=== PATIENT | female | born 1955 | race Caucasian/White ===

== ENCOUNTER 2024-10-16 13:12 | Outpatient (CLI) | payer MEDICARE, SELFPAY | END 2024-10-16 13:13 | disposition home or self-care (01) | PROVIDERS: Visit Provider Emergency Medicine Emergency Medical Services | DX: R53.1 Weakness (principal); R41.82 Altered mental status, unspecified | CPT/HCPCS: A0425; A0427 ==

== ENCOUNTER 2024-10-16 13:37 | Emergency (ER) | payer MEDICARE, SELFPAY ==
[2024-10-16] VITALS (65 sets, daily range): BP systolic 81–144; BP diastolic 45–120; PULSE 85–122; RESP 22–28; TEMP 37.6–39.3; O2SAT 91–96; BMI 24.1
--- NOTE | 2024-10-16 14:02 | ED_ITS ---
HPI - Fever General Time Seen by Provider: 14:02 Date Seen: 10/16/24 Chief Complaint: Fever Stated Complaint: Ill Time Seen by Provider: 10/16/24 13:55 Source: patient, EMS and RN notes reviewed Mode of arrival: EMS History of Present Illness HPI Narrative: Up 69-year-old female is brought in by EMS from home due to fever and illness. EMS reported that patient had 2 days of weakness and not acting right, difficulty speaking. She was noted to be a poor historian, EMS could not get an IV EN route. She has been known to have fever, recent chemotherapy. Was reporting left lower quadrant abdominal pain and had noted to have foul urine odor smell to her. Patient is minimally talking but is alert. When asked what type of cancer she has she tells me cancer. I start reviewing some of the cancers in she does endorse breast cancer after I went over that is 1 of the possibilities. She could not tell me what type of cancer without any prompting. She really cannot corroborate symptoms or give much of a history due to her illness right now. Her significant other is reportedly on the way but is not here. She has medications from [facility], did go into [facility] and there are no records on this patient. There are no current prior records in the new EMR or any in our past EMR on her. I do ask if she has had surgery for her breast cancer, she looks like she is trying to answer but never does answer the question. MD elicited complaint: fever and weakness Related Data Home Medications ?Medication ?Instructions ?Recorded ?Confirmed apixaban .ROUTE 10/16/24 dexamethasone .ROUTE 10/16/24 Allergies Allergy/AdvReac Type Severity Reaction Status Date / Time No Known Drug Allergies Allergy Verified 10/16/24 18:25 Review of Systems Status of ROS Reports: unobtainable due to medical condition Exam Const Vital Signs, click to edit/add: Vital Signs - 24 hr 10/16/24 13:42 10/16/24 14:09 10/16/24 14:15 Temperature 101.8 F H Pulse Rate 119 H 116 H Pulse Rate [Pulse Oximeter] 122 H Respiratory Rate 24 28 H 28 H Blood Pressure 94/60 81/56 L Blood Pressure [Right Upper Arm] 95/66 Pulse Oximetry 91 94 92 Oxygen Delivery Method Room Air Room Air Room Air 10/16/24 14:16 10/16/24 14:32 10/16/24 14:39 Temperature Pulse Rate 115 H 113 H Pulse Rate [Pulse Oximeter] Respiratory Rate 26 H 28 H Blood Pressure 87/54 L 87/57 L Blood Pressure [Right Upper Arm] Pulse Oximetry 94 96 Oxygen Delivery Method Room Air Room Air 10/16/24 14:42 10/16/24 14:51 10/16/24 15:02 Temperature Pulse Rate 109 H 108 H Pulse Rate [Pulse Oximeter] Respiratory Rate 28 H 26 H 24 Blood Pressure 98/59 L 97/68 Blood Pressure [Right Upper Arm] Pulse Oximetry 96 96 96 Oxygen Delivery Method Room Air Room Air Room Air 10/16/24 15:11 10/16/24 15:11 10/16/24 15:22 Temperature 99.6 F 99.6 F Pulse Rate 106 H 103 H Pulse Rate [Pulse Oximeter] Respiratory Rate 24 24 Blood Pressure 86/56 L 89/53 L Blood Pressure [Right Upper Arm] Pulse Oximetry 95 95 Oxygen Delivery Method Room Air Room Air 10/16/24 15:31 10/16/24 15:41 10/16/24 15:51 Temperature Pulse Rate 103 H 103 H Pulse Rate [Pulse Oximeter] Respiratory Rate 26 H 22 24 Blood Pressure 90/54 L 90/53 L 88/54 L Blood Pressure [Right Upper Arm] Pulse Oximetry 94 95 95 Oxygen Delivery Method Room Air Room Air Room Air 10/16/24 16:02 10/16/24 16:22 10/16/24 16:26 Temperature Pulse Rate 102 H 98 94 Pulse Rate [Pulse Oximeter] Respiratory Rate 22 22 24 Blood Pressure 87/53 L 86/53 L 97/58 L Blood Pressure [Right Upper Arm] Pulse Oximetry 96 95 96 Oxygen Delivery Method Room Air Room Air Room Air 10/16/24 16:31 10/16/24 16:36 10/16/24 16:41 Temperature Pulse Rate 93 92 93 Pulse Rate [Pulse Oximeter] Respiratory Rate 22 22 22 Blood Pressure 106/59 L 106/56 L 106/62 Blood Pressure [Right Upper Arm] Pulse Oximetry 94 95 96 Oxygen Delivery Method Room Air Room Air Room Air 10/16/24 16:46 10/16/24 16:51 10/16/24 16:56 Temperature 100.2 F H Pulse Rate 95 92 92 Pulse Rate [Pulse Oximeter] Respiratory Rate 24 22 Blood Pressure 104/63 110/64 110/64 Blood Pressure [Right Upper Arm] Pulse Oximetry 96 94 93 Oxygen Delivery Method Room Air Room Air 10/16/24 17:02 10/16/24 17:06 10/16/24 17:12 Temperature Pulse Rate 101 H 104 H 105 H Pulse Rate [Pulse Oximeter] Respiratory Rate Blood Pressure 116/73 112/74 126/70 Blood Pressure [Right Upper Arm] Pulse Oximetry 95 95 95 Oxygen Delivery Method 10/16/24 17:17 10/16/24 17:20 10/16/24 17:22 Temperature Pulse Rate 107 H 108 H 108 H Pulse Rate [Pulse Oximeter] Respiratory Rate Blood Pressure 120/66 144/120 H Blood Pressure [Right Upper Arm] Pulse Oximetry 95 95 95 Oxygen Delivery Method 10/16/24 17:27 10/16/24 17:35 10/16/24 17:37 Temperature 102.8 F H Pulse Rate 110 H 119 H 114 H Pulse Rate [Pulse Oximeter] Respiratory Rate 28 H 28 H 26 H Blood Pressure 123/82 116/72 104/62 Blood Pressure [Right Upper Arm] Pulse Oximetry 95 93 94 Oxygen Delivery Method Room Air Room Air Room Air 10/16/24 17:42 10/16/24 17:48 10/16/24 17:52 Temperature Pulse Rate 118 H 117 H 112 H Pulse Rate [Pulse Oximeter] Respiratory Rate 26 H 26 H Blood Pressure 116/71 112/62 111/66 Blood Pressure [Right Upper Arm] Pulse Oximetry 94 94 95 Oxygen Delivery Method Room Air Room Air Room Air 10/16/24 17:57 10/16/24 18:06 10/16/24 18:22 Temperature Pulse Rate 117 H 106 H 104 H Pulse Rate [Pulse Oximeter] Respiratory Rate 24 24 Blood Pressure 107/58 L 112/99 H 96/55 L Blood Pressure [Right Upper Arm] Pulse Oximetry 95 Oxygen Delivery Method Room Air Room Air Room Air 10/16/24 18:27 10/16/24 18:29 10/16/24 18:32 Temperature Pulse Rate 108 H 106 H 107 H Pulse Rate [Pulse Oximeter] Respiratory Rate Blood Pressure 89/47 L 86/50 L 87/45 L Blood Pressure [Right Upper Arm] Pulse Oximetry 92 91 93 Oxygen Delivery Method Room Air Room Air Room Air 10/16/24 18:36 10/16/24 18:37 10/16/24 18:41 Temperature 99.6 F 99.6 F Pulse Rate 101 H 98 Pulse Rate [Pulse Oximeter] Respiratory Rate 24 Blood Pressure 101/58 L 103/58 L Blood Pressure [Right Upper Arm] Pulse Oximetry 93 93 Oxygen Delivery Method Room Air 10/16/24 18:46 10/16/24 18:51 10/16/24 18:56 Temperature Pulse Rate 100 98 97 Pulse Rate [Pulse Oximeter] Respiratory Rate 24 Blood Pressure 98/57 L 100/56 L 102/57 L Blood Pressure [Right Upper Arm] Pulse Oximetry 93 92 92 Oxygen Delivery Method 10/16/24 19:02 10/16/24 19:06 10/16/24 19:11 Temperature Pulse Rate 97 100 101 H Pulse Rate [Pulse Oximeter] Respiratory Rate 24 Blood Pressure 104/56 L 101/58 L 105/56 L Blood Pressure [Right Upper Arm] Pulse Oximetry 94 92 93 Oxygen Delivery Method Room Air Room Air Room Air 10/16/24 19:16 10/16/24 19:22 10/16/24 19:27 Temperature Pulse Rate 100 93 93 Pulse Rate [Pulse Oximeter] Respiratory Rate Blood Pressure 100/56 L 96/55 L 95/54 L Blood Pressure [Right Upper Arm] Pulse Oximetry 92 93 93 Oxygen Delivery Method Room Air 10/16/24 19:32 10/16/24 19:37 10/16/24 19:42 Temperature Pulse Rate 92 92 91 Pulse Rate [Pulse Oximeter] Respiratory Rate Blood Pressure 96/52 L 97/58 L 97/55 L Blood Pressure [Right Upper Arm] Pulse Oximetry 94 95 94 Oxygen Delivery Method Room Air Room Air Room Air 10/16/24 19:46 10/16/24 19:51 10/16/24 19:56 Temperature Pulse Rate 93 92 92 Pulse Rate [Pulse Oximeter] Respiratory Rate Blood Pressure 98/54 L 97/55 L 101/56 L Blood Pressure [Right Upper Arm] Pulse Oximetry 93 93 94 Oxygen Delivery Method Room Air Room Air Room Air 10/16/24 20:01 10/16/24 20:06 10/16/24 20:12 Temperature Pulse Rate 91 89 Pulse Rate [Pulse Oximeter] Respiratory Rate 24 24 24 Blood Pressure 105/55 L 108/61 117/52 L Blood Pressure [Right Upper Arm] Pulse Oximetry 93 93 Oxygen Delivery Method 10/16/24 20:16 10/16/24 20:22 10/16/24 20:27 Temperature Pulse Rate 90 85 Pulse Rate [Pulse Oximeter] Respiratory Rate 24 24 Blood Pressure 115/66 118/67 110/67 Blood Pressure [Right Upper Arm] Pulse Oximetry 95 96 Oxygen Delivery Method Febrile 69-year-old female lying there, alert, does attempt to talk but can maybe get 1 word out at a time. Eyes are widely open, maybe a little scleral icterus, difficult to say. Conjugate gaze. Symmetrical facial function. Lips are dry, cracked, or pharynx dry. Neck is supple, no masses. Breathing easy on room air, too weak to sit up, lung sounds at axilla and anteriorly are clear. CV regular but fast, no murmur noted, normal S1-S2. Abdomen is soft, nontender, nondistended, no organomegaly noted at this time. Of note, patient was c omplaining of left lower quadrant abdominal pain, nursing staff did place a Nino and she had about 700 mL of urine out, she is nontender at this time and I am examining after the Nino is placed. She will wiggle her arms, legs, follows commands. Overall diminished global strength. Note no rash at this time. Documenting provider has reviewed patient's vital signs: yes Course Course ED Course: This patient is presumably septic with fever and tachycardia, lower blood pre ssure. I have nothing to compare to for prior vitals as far as blood pressure. Have initiated initial L of IV fluids with normal saline, will place a 2 L to follow. Blood cultures in blood, urinalysis has been obtained. Will get a portable chest x-ray. Have ordered vancomycin and Zosyn for sepsis. Will see if we can get any further records on her, talk to her significant other when he arrives. Reevaluation(s) Time of Reevaluation #1: 16:25 Reevaluation #1: Patient is alert, conversive. No concern for any encephalopathic changes at this time. Have reviewed with her that I have talked to [facility], they are on bed divert but will be considering her. Will be starting pressure support as her maps have been consistently under 65, latest was 61. She clinically is looking better, pulse is improving. Have ordered a follow-up lactate. She has completed 2 L of IV fluid, about a another 500 mL between the antibiotics. Time of Reevaluation #2: 18:28 Reevaluation #2: Patient blood pressures have lowered again, map is below 65. Will re-initiate norepinephrine. Nursing staff will update [facility]. Consultations Consultation #1: Spoke with Nanci ROBERT at [facility]. She did give me some history on the patient. They are currently on diversion. If patient does need to go on pressor support, needs unit bed support, we are to call back as they may consider her. She received carboplatin and gemcitabine on the . She has a history of right breast cancer with bone and liver metastases, had a right lumpectomy. She has had a history of PE, history of pneumonitis and interstitial lung disease. History tricuspid regurgitation, history of hypercalcemia. Confirmed no known drug allergies. 4:07 p.m. spoke with Kev ROBERT. Patient has been started on norepinephrine for pressure support. She clinically looks better, is mentating normally now. She is going to take the information and talk to the biomedical engineering technologist of the day, they will contact us back. 5:34 p.m.: Spoke with the insurance and benefits clerk Dr. Burnett, she is aware that patient is currently going off norepinephrine as blood pressure was 144/120. Most recent temperature was 102.8?, obtaining another blood culture, will give oral dose of Tylenol. Patient will proceed with chest abdomen pelvis to see if we can find a source prior to transfer. Will make sure her films are pushed to [facility]. She will be going to [facility] in [place]. 7:11 p.m.: Did update new staff in the unit that will be caring for patient. They had requested new sign-out which was called to [facility], spoke with nurse practitioner Kiley. Time: 14:51 Consultation #2: Did speak with [facility] hospitalist Dr. Cuevas and insurance and benefits clerk Dr. Richards. They are accepting this patient, maybe up to an 8 hour wait. We did discuss hydrocortisone, as there will be a weight, will order the chest abdomen pelvis CT as patient seems to have stabilized. Did not feel earlier that we had the capacity to do this. Their where that I am still working with [facility] to see if I can get her down to [place]. We will cancel the [facility] bed if we hear from her [facility] that we have acceptance. Time: 17:10 Vital Signs Vital signs: Initial Vital Signs Temperature 101.8 F H 10/16/24 13:42 Temperature Source Temporal Artery Scan 10/16/24 13:42 Pulse Rate 122 H 10/16/24 13:42 Respiratory Rate 24 10/16/24 13:42 Blood Pressure 95/66 10/16/24 13:42 Blood Pressure Mean 75 10/16/24 13:42 Blood Pressure Position Sitting 10/16/24 13:42 Pulse Oximetry 91 10/16/24 13:42 Oxygen Delivery Method Room Air 10/16/24 13:42 Vital Signs Temperature 101.8 F H 10/16/24 13:42 Pulse Rate 122 H 10/16/24 13:42 Respiratory Rate 24 10/16/24 13:42 Blood Pressure 95/66 10/16/24 13:42 Pulse Oximetry 91 10/16/24 13:42 Oxygen Delivery Method Room Air 10/16/24 13:42 Temperature 99.6 F 10/16/24 18:37 Pulse Rate 85 10/16/24 20:22 Respiratory Rate 24 10/16/24 20:22 Blood Pressure 110/67 10/16/24 20:27 Pulse Oximetry 96 10/16/24 20:22 Oxygen Delivery Method Room Air 10/16/24 19:56 Medications Administered Medications: Discontinued Medications Generic Name Dose Route Start Last Admin Trade Name Freq PRN Reason Stop Dose Admin Acetaminophen 650 mg 10/16/24 14:10 10/16/24 14:34 Acetaminophen 650 Mg Supp CO 10/16/24 14:11 650 mg ONCE ONE Administration Acetaminophen 1,000 mg 10/16/24 17:19 10/16/24 17:31 Acetaminophen 500 Mg Tablet PO 10/16/24 17:20 1,000 mg ONCE ONE Administration Hydrocortisone Sodium Succinate 100 mg 10/16/24 17:30 10/16/24 17:46 Hydrocortisone Sod Succinate 50 Mg/Ml Inj IVP 100 mg Q8H KAREN Administration Sodium Chloride 1,000 mls @ 1,000 mls/hr 10/16/24 14:04 10/16/24 15:11 0.9 % Sodium Chloride 1000 Ml IV 10/16/24 15:03 Infused .Q1H KAREN Infusion Vancomycin/PEG/NADA/Lysine/Water 1.25 gm in 250 mls @ 200 mls/hr 10/16/24 14:30 10/16/24 16:43 Vancomycin 1.25 Gm/250 Ml IVPB 10/16/24 15:44 Infused ONCE ONE Infusion Protocol Piperacillin Sod/Tazobactam 100 mls @ 200 mls/hr 10/16/24 14:09 10/16/24 15:11 Sod 3.375 gm/ Sodium Chloride IVPB 10/16/24 14:10 Infused ONCE ONE Infusion Sodium Chloride 1,000 mls @ 1,000 mls/hr 10/16/24 14:44 10/16/24 16:43 0.9 % Sodium Chloride 1000 Ml IV 10/16/24 15:43 Infused .Q1H KAREN Infusion Norepinephrine/Dextrose 4,000 mcg in 250 mls @ 24.664 mls/hr 10/16/24 16:15 10/16/24 18:32 Norepinephrine Infusion IV 0.1 mcg/kg/min CONT KAREN 24.66 mls/hr Titration Protocol 0.1 MCG/KG/MIN Potassium Chloride/Sodium Chloride 1,000 mls @ 125 mls/hr 10/16/24 16:35 10/16/24 16:45 0.9 % Sodium Ch + Kcl 20 Meq/L IV 125 mls/hr .Q8H KAREN Administration MDM - Fever Lab Data Attestation: I reviewed the patient's lab results. Labs: Lab Results 10/16/24 10/16/24 10/16/24 Range/Units 13:40 14:03 14:05 WBC 2.25 L (4.50-11.00) K/uL RBC 3.19 L (4.00-5.20) m/uL Hgb 10.3 L (12.0-16.0) gm/dL Hct 31.8 L (33.0-51.0) % MCV 100 (80-100) fL MCH 32 (26-34) pg MCHC 32 (32-36) gm/dL RDW Coeff of Christopher 16.2 H (11.5-15.5) % Plt Count 25 L* (140-440) K/uL Neut % (Auto) 86.2 H (42.0-72.0) % Lymph % (Auto) 10.2 L (20-44) % Redwood % (Auto) 2.7 (0.0-11.0) % Eos % (Auto) 0.0 (0.0-7.0) % Baso % (Auto) 0.0 (0.0-3.0) % Neut # (Auto) 1.90 (1.7-7.0) K/uL Lymph # (Auto) 0.20 L (0.90-2.90) K/uL Redwood # (Auto) 0.10 (0.00-0.90) K/UL Eos # (Auto) 0.00 (0.00-0.50) K/uL Baso # (Auto) 0.00 (0.00-0.30) K/uL Abs Immat Gran (auto) 0.00 (0.00-0.30) K/uL Imm/Tot Granulo (auto) 0.9 % Diff Slide Review Acceptable Review (Acceptable) VBG pH 7.471 H (7.32-7.43) VBG pCO2 29 L (40-50) mmHG VBG pO2 < 30.1 (25-47) mmHG VBG HCO3 21 (21-28) mmol/L Sodium 132 L (135-149) mmol/L Potassium 3.8 (3.6-5.1) mmol/L Chloride 100 (96-114) mmol/L Carbon Dioxide 22 (20-32) mmol/L Anion Gap 10 (7-15) mEq/L BUN 21 (7-30) mg/dL Creatinine 0.8 (0.5-1.5) mg/dL Estimated Creat Clear 47.78 Estimated GFR 80 ml/min Glucose 92 (60-115) mg/dL Lactate 3.2 H (0.5-1.9) mmol/L Calcium 8.3 L (8.4-10.6) mg/dL Total Bilirubin 0.9 (0.1-1.5) mg/dL AST 239 H (12-35) U/L ALT 45 H (4-35) U/L Alkaline Phosphatase 225 H (40-150) U/L Troponin I 0.02 (0.01-0.04) ng/mL C-Reactive Protein 17.0 H (0.5-1.0) mg/dL NT-Pro-B Natriuret Pep 261 pg/mL Total Protein 6.5 (6.0-8.3) g/dL Albumin 3.7 (3.3-5.0) g/dL Procalcitonin 18.60 H (<0.50) ng/mL Urine Color Yellow (Yellow) Urine Appearance Clear (Clear) Urine pH 7.0 (5.0-8.5) Ur Specific [place] Gap 1.020 (1.000-1.030) Urine Protein 1+ A (Negative) Urine Glucose (UA) Negative (Negative) Urine Ketones Negative (Negative) Urine Blood Negative (Negative) Urine Nitrite Negative (Negative) Urine Bilirubin Negative (Negative) Urine Urobilinogen 0.2 (0.2-1.0) Ur Leukocyte Esterase Negative (Negative) Urine RBC 0-2 (0-2) Urine WBC 0-2 (0-5) Ur Squamous Epith Cells Few (None-Few) Urine Bacteria Few A (None) SARS-CoV-2 (PCR) Negative SARS-CoV-2 (Negative) Influenza Type A (PCR) Negative PCR FLU A (Negative) Influenza Type B (PCR) Negative PCR FLU B (Negative) RSV (PCR) Negative PCR RSV (Negative) POC Creatinine 0.9 (0.6-1.3) mg/dl 10/16/24 Range/Units 16:30 WBC (4.50-11.00) K/uL RBC (4.00-5.20) m/uL Hgb (12.0-16.0) gm/dL Hct (33.0-51.0) % MCV (80-100) fL MCH (26-34) pg MCHC (32-36) gm/dL RDW Coeff of Christopher (11.5-15.5) % Plt Count (140-440) K/uL Neut % (Auto) (42.0-72.0) % Lymph % (Auto) (20-44) % Redwood % (Auto) (0.0-11.0) % Eos % (Auto) (0.0-7.0) % Baso % (Auto) (0.0-3.0) % Neut # (Auto) (1.7-7.0) K/uL Lymph # (Auto) (0.90-2.90) K/uL [place]wood # (Auto) (0.00-0.90) K/UL Eos # (Auto) (0.00-0.50) K/uL Baso # (Auto) (0.00-0.30) K/uL Abs Immat Gran (auto) (0.00-0.30) K/uL Imm/Tot Granulo (auto) % Diff Slide Review (Acceptable) VBG pH (7.32-7.43) VBG pCO2 (40-50) mmHG VBG pO2 (25-47) mmHG VBG HCO3 (21-28) mmol/L Sodium (135-149) mmol/L Potassium (3.6-5.1) mmol/L Chloride (96-114) mmol/L Carbon Dioxide (20-32) mmol/L Anion Gap (7-15) mEq/L BUN (7-30) mg/dL Creatinine (0.5-1.5) mg/dL Estimated Creat Clear Estimated GFR ml/min Glucose (60-115) mg/dL Lactate 1.4 (0.5-1.9) mmol/L Calcium (8.4-10.6) mg/dL Total Bilirubin (0.1-1.5) mg/dL AST (12-35) U/L ALT (4-35) U/L Alkaline Phosphatase (40-150) U/L Troponin I (0.01-0.04) ng/mL C-Reactive Protein (0.5-1.0) mg/dL NT-Pro-B Natriuret Pep pg/mL Total Protein (6.0-8.3) g/dL Albumin (3.3-5.0) g/dL Procalcitonin (<0.50) ng/mL Urine Color (Yellow) Urine Appearance (Clear) Urine pH (5.0-8.5) Ur Specific [place] Gap (1.000-1.030) Urine Protein (Negative) Urine Glucose (UA) (Negative) Urine Ketones (Negative) Urine Blood (Negative) Urine Nitrite (Negative) Urine Bilirubin (Negative) Urine Urobilinogen (0.2-1.0) Ur Leukocyte Esterase (Negative) Urine RBC (0-2) Urine WBC (0-5) Ur Squamous Epith Cells (None-Few) Urine Bacteria (None) SARS-CoV-2 (PCR) (Negative) Influenza Type A (PCR) (Negative) Influenza Type B (PCR) (Negative) RSV (PCR) (Negative) POC Creatinine (0.6-1.3) mg/dl Imaging Data Chest x-ray: Attestation: I have reviewed the pertinent imaging results. My impression: I do not see any infiltrate or effusion on my preliminary review. Radiologist's impression: Patient: AUREA BAILEY Facility:?[facility] Patient ID:?[id number] Site Patient ID:?[id number]. Site :?[id number] Study:?XRay-Chest portable-10/16/2024 2:32:06 PM Ordering Physician:?Cristofer Mason Final Report: Indication: Fever Technique: Chest 1 view Comparison: None Findings/Impression: Cardiovascular and mediastinum: Heart size and vasculature are normal in caliber and appearance. Lungs and pleural space: No pleural effusion or pneumothorax. Minimal discoid atelectasis right lung base. Bones and soft tissues: No acute findings. Dictated by Jorge Richards MD @ 10/16/2024 2:46:34 PM (Electronic Signature) CT Chest/Ab/Pelvis: Attestation: I have reviewed the pertinent imaging results. Radiologist's impression: Patient: AUREA GONZALEZTRINY Facility:?[facility] Patient ID:?[id number] Site Patient ID:?[id number] Site :?[id number] Study:?CT-Chest/Abd/Pelvis 71CC ISOVUE 370-10/16/2024 6:29:43 PM Ordering Physician:?Cristofer Mason Final Report: INDICATION: Septic shock, unknown etiology TECHNIQUE: CT chest, abdomen and pelvis acquired with 71 cc of Isovue 370 IV contrast. COMPARISON: Chest radiograph from the same day. FINDINGS: CHEST: Cardiovascular structures: Heart size is normal. Thoracic aorta and main pulmonary artery are normal in caliber. Mediastinum and demetri: No mass or adenopathy. Lungs and pleura: 6 mm left apical nodule (4/38). Biapical pleural-parenchymal scarring Chest wall and axilla: Possible 1.4 cm enhancing mass within the right breast (2/128) Bones: Extensive sclerotic and lytic foci throughout the imaged osseous structures. Mild T9 compression fracture. ABDOMEN AND PELVIS: Liver: Innumerable hypodense masses scattered throughout the liver, the largest measuring 6.9 cm within the liver dome. Gallbladder and bile ducts: Unremarkable. Pancreas: Unremarkable. Spleen: Unremarkable. Adrenal glands: Unremarkable. Kidneys: Unremarkable. GI tract: Unremarkable. Vascular structures: Unremarkable. Lymph nodes: Unremarkable. Miscellaneous: Unremarkable. No free air or significant free fluid. Pelvic Organs: 2.8 cm posterior fundal fibroid. Prominent left ovary measuring 2.0 cm. Bones: Extensive sclerotic and lytic foci throughout the visualized skeleton. There are several linear lucencies within the left iliac wing and left superior pubic ramus, which are suspicious for pathologic fractures. IMPRESSION: 1. Innumerable hypodense masses scattered throughout the liver as well as extensive sclerotic and lytic foci throughout the visualized skeleton, compatib le with metastatic disease. 2. Possible 1.4 cm enhancing mass within the right breast, possibly representing the patient`s primary malignancy. Recommend correlation with diagnostic mammogram. 3. 6 mm left apical nodule. Metastatic disease can not be excluded. 4. Several linear lucencies within the left iliac wing and left superior pubic ramus in the setting of extensive osseous metastatic disease. These may represent pathologic fractures. 5. Age-indeterminate mild T9 compression fracture, could be pathologic as well. Please note that all CT scans at this facility use dose modulation, iterative reconstruction, and/or weight-based dosing when appropriate to reduce radiation dose to as low as reasonably achievable. Dictated by Clifford Catalan MD @ 10/16/2024 7:24:09 PM (Electronic Signature) ECG Data Attestation: I personally reviewed and interpreted this ECG as follows: (Sinus tachycardia, 117 beats per minute. Some artifact. Nonspecific flipped T-waves, no definitive ST segment changes, Q-waves 3 and AVF.) ECG interpretation date: 10/16/24 ECG interpretation time: 14:27 Prior ECG tracings: not available for review Critical Care Time Critical Care Time Critical Care Time: Yes Attestation: The patient required my highest level preparedness to intervene emergently and I personally spent this critical care time directly and personally managing the patient. This critical care time included: Obtaining a history; Examining the patient; Pulse oximetry; Ordering and reviewing of studies; Arranging urgent treatment with development of a management plan; Evaluation of patients response to treatment; Frequent reassessment discussions with other providers. This critical care time was performed to assess and manage the high probability of imminent life-threatening deterioration that could result in multiorgan failure. It was exclusive of separate billable procedures and treating other patients and teaching time. Total Critical Care Time in Minutes: 120 Discharge Plan Discharge Clinical Impression: Septic shock [facility]position[facility] Discharge Location: [facility] Condition: Improved Prescriptions: No Action dexamethasone .ROUTE apixaban [Eliquis] .ROUTE Stand Alone Forms: [place] Info Instructions
--- NOTE | 2024-10-16 14:03 | CRLHL7_ITS ---
For Patients: As a result of the Cures Act, medical imaging exams and procedure reports are released immediately into your electronic medical record. You may view this report before your referring provider. If you have questions, please contact your health care provider. Indication: Fever Technique: Chest 1 view Comparison: None Findings/Impression: Cardiovascular and mediastinum: Heart size and vasculature are normal in caliber and appearance. Lungs and pleural space: No pleural effusion or pneumothorax. Minimal discoid atelectasis right lung base. Bones and soft tissues: No acute findings. Dictated by Jorge Richards MD @ 10/16/2024 2:46:34 PM (Electronically Signed)
[2024-10-16 14:05] LABS: Appearance Urine Clear (Clear); Bilirubin Urine Negative (Negative); Blood Urine Negative (Negative); Color Urine Yellow (Yellow); Glucose Urine Negative (Negative); Ketones Urine Negative (Negative); Leukocyte Esterase Urine Negative (Negative); Nitrite Urine Negative (Negative); Protein Urine 1+ (Negative); Urobilinogen Urine 0.2 (0.2-1.0)
[2024-10-16 14:30] LABS: Lactate* 3.2 mmol/L (0.5-1.9); PCO2 VBG 29 mmHG (40-50); PO2 VBG < 30.1 mmHG (25-47); pH VBG 7.471 (7.32-7.43)
[2024-10-16 14:31] LABS: HCO3 VBG 21 mmol/L (21-28)
[2024-10-16] MEDS: 0.9 % SODIUM CHLORIDE 1000 ml 1,000 ML IV ×2 (14:31→15:08)
[2024-10-16] MEDS: PIPERACILLIN/TAZOBACTAM 3.375 GM in 0.9 % SODIUM CHLORIDE Mini-bag 100 ML IVPB (14:31)
[2024-10-16] MEDS: ACETAMINOPHEN 650 MG SUPP PR (14:34)
[2024-10-16 14:36] LABS: PCR FLU A Negative PCR FLU A (Negative); PCR FLU B Negative PCR FLU B (Negative); PCR RSV Negative PCR RSV (Negative); SARS PCR* Negative SARS-CoV-2 (Negative)
[2024-10-16 14:37] LABS: Bacteria Urine Few; RBC Urine 0-2 (0-2); Squamous Epithelial Cell Urine Few (None-Few); WBC Urine 0-2 (0-5)
[2024-10-16 14:38] LABS: Hematocrit 31.8 % (33.0-51.0); Hemoglobin* 10.3 gm/dL (12.0-16.0); Immature Granulocytes Pct Auto 0.9 %; Lymphocytes Percent Auto 10.2 % (20-44); Mean Corpuscular HGB Conc 32 gm/dL (32-36); Mean Corpuscular Hemoglobin 32 pg (26-34); Mean Corpuscular Volume 100 fL (80-100); Monocytes Percent Auto 2.7 % (0.0-11.0); Neutrophils Percent Auto 86.2 % (42.0-72.0); RDW Coefficient of Variation % 16.2 % (11.5-15.5); Red Blood Count 3.19 m/uL (4.00-5.20); White Blood Count* 2.25 K/uL (4.50-11.00)
[2024-10-16 14:41] LABS: Creatinine, Point-of-Care* 0.9 mg/dl (0.6-1.3)
--- NOTE | 2024-10-16 14:45 | ED.NURSE ---
Nino catheter completed upon patient arrival. 700cc obtained, UA sent to lab.
[2024-10-16 14:51] LABS: Chloride* 100 mmol/L (96-114)
[2024-10-16 14:52] LABS: Albumin* 3.7 g/dL (3.3-5.0); Potassium* 3.8 mmol/L (3.6-5.1); Sodium* 132 mmol/L (135-149)
[2024-10-16 14:54] LABS: Creatinine* 0.8 mg/dL (0.5-1.5); Est. Creatinine Clearance* 47.78; Estimated Glomerular Filt Rate 80 ml/min
[2024-10-16 14:55] LABS: Alanine Aminotransferase* 45 U/L (4-35); Alkaline Phosphatase* 225 U/L (40-150); Anion Gap 10 mEq/L (7-15); Aspartate Amino Transferase* 239 U/L (12-35); Bilirubin Total* 0.9 mg/dL (0.1-1.5); Blood Urea Nitrogen* 21 mg/dL (7-30); Carbon Dioxide* 22 mmol/L (20-32); Glucose* 92 mg/dL (60-115); Total Protein* 6.5 g/dL (6.0-8.3)
[2024-10-16 14:56] LABS: Calcium* 8.3 mg/dL (8.4-10.6)
[2024-10-16] MEDS: VANCOMYCIN 1.25 GM/250 ML 1.25 GM/250 ML PIGGYBACK IVPB (15:04)
[2024-10-16 15:07] LABS: Troponin I* 0.02 ng/mL (0.01-0.04)
[2024-10-16 15:19] LABS: NT Pro B Type NatriureticPept* 261 pg/mL
[2024-10-16 15:26] LABS: Platelet Count* 25 K/uL (140-440); Slide Review Reflex Yes
[2024-10-16 16:01] LABS: Slide Review Acceptable Review (Acceptable)
[2024-10-16 16:34] LABS: Lactate* 1.4 mmol/L (0.5-1.9)
[2024-10-16] MEDS: 0.9 % SODIUM CH + KCL 20 mEq/L 1,000 ML 125 ML IV (16:45)
--- NOTE | 2024-10-16 17:19 | CRLHL7_ITS ---
For Patients: As a result of the 21st Century Cures Act, medical imaging exams and procedure reports are released immediately into your electronic medical record. You may view this report before your referring provider. If you have questions, please contact your health care provider. INDICATION: Septic shock, unknown etiology TECHNIQUE: CT chest, abdomen and pelvis acquired with 71 cc of Isovue 370 IV contrast. COMPARISON: Chest radiograph from the same day. FINDINGS: CHEST: Cardiovascular structures: Heart size is normal. Thoracic aorta and main pulmonary artery are normal in caliber. Mediastinum and demetri: No mass or adenopathy. Lungs and pleura: 6 mm left apical nodule (4/38). Biapical pleural-parenchymal scarring Chest wall and axilla: Possible 1.4 cm enhancing mass within the right breast (2/128) Bones: Extensive sclerotic and lytic foci throughout the imaged osseous structures. Mild T9 compression fracture. ABDOMEN AND PELVIS: Liver: Innumerable hypodense masses scattered throughout the liver, the largest measuring 6.9 cm within the liver dome. Gallbladder and bile ducts: Unremarkable. Pancreas: Unremarkable. Spleen: Unremarkable. Adrenal glands: Unremarkable. Kidneys: Unremarkable. GI tract: Unremarkable. Vascular structures: Unremarkable. Lymph nodes: Unremarkable. Miscellaneous: Unremarkable. No free air or significant free fluid. Pelvic Organs: 2.8 cm posterior fundal fibroid. Prominent left ovary measuring 2.0 cm. Bones: Extensive sclerotic and lytic foci throughout the visualized skeleton. There are several linear lucencies within the left iliac wing and left superior pubic ramus, which are suspicious for pathologic fractures. IMPRESSION: 1. Innumerable hypodense masses scattered throughout the liver as well as extensive sclerotic and lytic foci throughout the visualized skeleton, compatible with metastatic disease. 2. Possible 1.4 cm enhancing mass within the right breast, possibly representing the patient`s primary malignancy. Recommend correlation with diagnostic mammogram. 3. 6 mm left apical nodule. Metastatic disease can not be excluded. 4. Several linear lucencies within the left iliac wing and left superior pubic ramus in the setting of extensive osseous metastatic disease. These may represent pathologic fractures. 5. Age-indeterminate mild T9 compression fracture, could be pathologic as well. Please note that all CT scans at this facility use dose modulation, iterative reconstruction, and/or weight-based dosing when appropriate to reduce radiation dose to as low as reasonably achievable. Dictated by Clifford Catalan MD @ 10/16/2024 7:24:09 PM (Electronically Signed)
[2024-10-16] MEDS: ACETAMINOPHEN 500 MG TABLET 1000 MG PO (17:31)
[2024-10-16] MEDS: HYDROCORTISONE SOD SUCCINATE 50 MG/ML inj 100 MG IVP (17:46)
--- NOTE | 2024-10-16 18:09 | ED.NURSE ---
Patient getting blood cultures drawn and off to CT. BP not obtainable at this time. Last BP obtained within normal limits.
--- NOTE | 2024-10-16 20:48 | ED.NURSE ---
Nurse to nurse report given to Anglican.
== END 2024-10-16 20:36 | disposition short-term general hospital (02) ==
PROVIDERS: Emergency Provider Family Medicine
DX: A41.9 Sepsis, unspecified organism (principal); R65.21 Severe sepsis with septic shock
CPT/HCPCS: 36415; 71045; 71260; 74177; 80053; 81001; 82565; 82803; 83605; 83880; 84145; 84484; 85025; 86140; 87040; 87086; 87181; 87631; 87800; 93005; 94761; 99285; 99291; 99292; A9270; J1720; J2543; J3372; J7030; Q9967

== ENCOUNTER 2024-10-16 20:30 | Outpatient (CLI) | payer MEDICARE, SELFPAY | END 2024-10-16 20:31 | disposition home or self-care (01) | LOC: AMB 11-02 00:08 | PROVIDERS: Visit Provider Student in an Organized Health Care Education/Training Program | DX: A41.9 Sepsis, unspecified organism (principal) | CPT/HCPCS: A0425; A0433 ==

== ENCOUNTER 2024-11-26 12:43 | Inpatient (IN) | payer MEDICARE, SELFPAY ==
[2024-11-26] VITALS (22 sets, daily range): BP systolic 92–142; BP diastolic 63–90; PULSE 96–120; RESP 14–163; TEMP 36.7–37.1; O2SAT 89–93; BMI 22.7; BMI 22.5
--- OUTSIDE RECORDS SUMMARY | 2024-11-26 12:46 | XMS_ITS | Clinical Summary ---
Author Organization [email or web address] Address [address] [place] [id number] Care Team Providers Care Hospital Education Coordinator Name Role Phone Provider, No Primary Primary Care Provider Unava ilable Allergies No known active allergies Medications atorvastatin (LIPITOR) 20 mg oral Tablet Take 20 mg by mouth once daily. Active albuterol sulfate (PROVENTIL,VENT EULALIO,PROAIR) 90 mcg/actuation inhalation HFA Aerosol InhalerIndicati ons:COVID-19 virus infection 2 Puffs by inhalation route every 2 hours as needed for shortness of breath. 1 Each 2 Active Active Problems Problem Noted Date Diagnosed Date Acute hypoxemic respiratory failure 10/19/2021 Pneumonia of both lower lobes due to infectious organism 10/19/2021 Overview (10/19/2021): Probable superimposed bacterial pneumonia COVID-19 virus infection 10/07/2021 Breast cancer Hypokalemia Immunizations Name Administration Dates Next Due Influenza Vac, IM, Quadrival ent Preserv Free, (>6 months) 08/02/2019 Family History Medical History Relation Name Comments Breast Cancer Mother Other Mother Relation Name Status Comments Father Mother Social History Tobacco Use Types Packs/Day Years Used Date Smoking Tobacco: Never Smokeless Tobacco: Never Alcohol Use Standard Drinks/Week Comments Never 0 (1 standard drink = 0.6 oz pur e alcohol) Depression (PHQ-9) Answer Date Recorded Last PHQ-9 Score Not on file 10/30/2020 Thoughts of self harm Not at all 10/30/2020 Comments No Sex and Gender Information Value Date Recorded Sex Assigned at Not on file Legal Sex Female 9:14 PM AUDITING CODER Gender Identity Not on file Sexual Orientation Not on file Last Filed Vital Signs Vital Sign Reading Time Taken Comments Blood Pressure 151/79 10/19/2021 6:00 AM AUDITING CODER Pulse 82 10/19/2021 6:00 AM AUDITING CODER Temperature 36.8 C (98.3 F) 10/19/2021 6:00 AM AUDITING CODER Respiratory Rate 21 10/19/2021 6:00 AM AUDITING CODER Oxygen Saturation 91% 10/19/2021 7:2 7 AM AUDITING CODER Just returned from bathroom Inhaled Oxygen Concentration - - Weight 70.3 kg (154 lb 15.7 oz) 10/19/2021 6:00 AM AUDITING CODER Height 160 cm (5' 3) 10/07/2021 6:19 PM AUDITING CODER Body Mass Index 27.45 10/07/2021 6:19 PM AUDITING CODER Plan of Treatment Health Maintenance Due Date Last Done Comments Hepatitis C Testing 1955 Depression Screening 1967 DTaP/Tdap/Td Vaccines (1 - Tdap) 1974 CT Colonography 2000 Colonoscopy 2000 Colorectal Cancer Screening 2000 Fecal Immunochemical DNA Test (FIT-DNA) 2000 Fecal Immunochemical Test (FIT) 2000 Pneumococcal Vaccine (50+ Years) (1 of 1 - PCV) 2005 Varicella Zoster Sequential (1 of 2) 2005 Mammogram Standard 02/05/2020 02/04/2019, 0 05/08/2018, 05/08/2018 Osteoporosis Screening-Female > 65 Years 2020 COVID-19 Vaccine ( - season) 2024 Influenza Vaccine (#1) 2024 0, 08/02/2019, 08/13/2018 Lipids Standard 12/14/2028 12/15/2023, 09/0 04/2023, 12/26/2022, Additional history exists Respiratory Syncytial Virus (RSV) Vaccine (1 - 1-dose 75+ series) 2030 HIB Vaccines Aged Out No longer eligi ble based on patient's age to complete this topic HPV Vaccines Aged Out No longer eligi ble based on patient's age to complete this topic Hepatitis A Vaccines Aged Out No long er eligible based on patient's age to complete this topic Hepatitis B Vaccines Aged Out No long er eligible based on patient's age to complete this topic Meningococcal B Vaccines Aged Out No longer eligible based on patient's age to complete this topic Meningococcal Vaccines Aged Out No lo nger eligible based on patient's age to complete this topic Procedures Procedure Name Priority Date/Time Associated Diagnosis Comments MAMMO DIAG ROSHAN W 3D 05/08/2018 9 :22 AM CDT from Last 3 Months or Most Recently Relevant to Health Maintenance Results * MAMMO DIAG ROSHAN W 3D (05/08/2018 9:22 AM CDT) Anatomical Region Laterality Modality Breast Bilateral Mammography 05/08/2018 9:22 AM CDT Narrative 05/08/2018 9:22 AM CDT Exam Description: MAMMOGRAM DIAGNOSTIC YO BILATERAL Exam Code: [id number] ABNORMAL REPORT Clinical History: 63-year-old with palpable right breast mass. Comparison: None. Breast Density: Heterogeneously dense, which may obscure small masses. BILATERAL Digital Diagnostic Mammogram Findings: A diagnostic bilateral mammogram was performed utilizing tomosynthesis. Right: A large, spiculated, dense mass is identified occupying the entire upper/outer right breast, middle to posterior depth. There is significant skin thickening, retraction, and distortion. Ultrasound was pursued. Left: There is no evidence for spiculated masses, architectural distortion, asymmetry or suspicious calcifications. Well-circumscribed mass inferior left breast, middle depth. Ultrasound was pursued. When performed, computer-aided detection was used in the interpretation of this study. Breast Ultrasound Findings: Ultrasound evaluation of the both breasts was performed. Right: Mammographic abnormality corresponds with a large, heterogeneous, spiculated mass at the 10:00 position, 7 cm from the nipple. Precise measurements are difficult to exclude, measuring at least 4.0 x 3.5 x 6.1 cm. This extends towards the skin surface where there is retraction and fungation through the skin surface. Posterior extent is difficult to assess, but appears to closely approximate the chest wall surface. A few additional smaller satellite lesions are identified within 2 cm of the dominant mass. Evaluation of the axilla demonstrates numerous morphologically abnormal lymph nodes, the largest measuring 1.4 x 1.4 x 1.3 cm. Left: Mammographic abnormality corresponds with a benign cyst at the 6:00 position, 4 cm from the nipple, measuring 0.6 x 0.5 x 0.5 cm. Left axilla is normal. Impression: Palpable right breast mass and suspicious right axillary lymph nodes are highly suggestive of primary breast malignancy. Recommendation: Ultrasound-guided core needle biopsy of the right breast mass and a right axillary lymph node. The patient was provided with the results and recommendations at the completion of the examination. ACR 5: Highly suggestive of malignancy. The patient will receive a lay language report of this examination. Author: ESTEPHANIE Anand, TAINA Procedure Note 01/14/2019 Exam Description: MAMMOGRAM DIAGNOSTIC YO BILATERAL Exam Code: [id number] ABNORMAL REPORT Clinical History: 63-year-old with palpable right breast mass. Comparison: None. Breast Density: Heterogeneously dense, which may obscure small masses. BILATERAL Digital Diagnostic Mammogram Findings: A diagnostic bilateral mammogram was performed utilizing tomosynthesis. Right: A large, spiculated, dense mass is identified occupying the entire upper/outer right breast, middle to posterior depth. There is significant skin thickening, retraction, and distortion. Ultrasound was pursued. Left: There is no evidence for spiculated masses, architectural distortion, asymmetry or suspicious calcifications. Well-circumscribed mass inferior left breast, middle depth. Ultrasound was pursued. When performed, computer-aided detection was used in the interpretation of this study. Breast Ultrasound Findings: Ultrasound evaluation of the both breasts was performed. Right: Mammographic abnormality corresponds with a large, heterogeneous, spiculated mass at the 10:00 position, 7 cm from the nipple. Precise measurements are difficult to exclude, measuring at least 4.0 x 3.5 x 6.1 cm. This extends towards the skin surface where there is retraction and fungation through the skin surface. Posterior extent is difficult to assess, but appears to closely approximate the chest wall surface. A few additional smaller satellite lesions are identified within 2 cm of the dominant mass. Evaluation of the axilla demonstrates numerous morphologically abnormal lymph nodes, the largest measuring 1.4 x 1.4 x 1.3 cm. Left: Mammographic abnormality corresponds with a benign cyst at the 6:00 position, 4 cm from the nipple, measuring 0.6 x 0.5 x 0.5 cm. Left axilla is normal. Impression: Palpable right breast mass and suspicious right axillary lymph nodes are highly suggestive of primary breast malignancy. Recommendation: Ultrasound-guided core needle biopsy of the right breast mass and a right axillary lymph node. The patient was provided with the results and recommendations at the completion of the examination. ACR 5: Highly suggestive of malignancy. The patient will receive a lay language report of this examination. Author: TAINA HUMMEL M.D. Phil Conner II, DO RAD MAMMO Final Result from Last 3 Months or Most Recently Relevant to Health Maintenance Insurance MEDICARE A AND B CIGNA SUPPLEMENT MEDICARE A AND B CIGNA SUPPLEMENT [place] [id number] MEDICARE A AND B CIGNA SUPPLEMENT Advance Directives * Full Code (Latest Code Status on File) Date Activated Date Inactivated Comments 10/07/2021 6:35 PM 10/19/2021 5:46 PM Care Teams Hospital Education Coordinator Relationship Specialty Start Date End Date Provider, No Primary . LIZZIE VALVERDE [id number] PCP - General 10/30/20 Additional Source Comments PLEASE NOTE: Replies to this message will not be received.[facility] and [facility]
--- OUTSIDE RECORDS SUMMARY | 2024-11-26 12:46 | XMS_ITS | Encounter Summary ---
Author Organization [employer] Address [address] [place] [address] Care Team Providers Care Geophysics Professor Name Role Phone Ubaldo LEI DO, Robert William Primary Care Provide r Unavailable Provider, No Primary Primary Care Provider Unava ilable Encounter Details Date Type Department Care Team (Late st Contact Info) Description 01/13/[address] [address] Social History Tobacco Use Types Packs/Day Years Used Date Smoking Tobacco: Never Smokeless Tobacco: Never Comments Unknown Sex and Gender Information Value Date Recorded Sex Assigned at Not on file Legal Sex Female 9:14 PM FURNACE FITTER Gender Identity Not on file Sexual Orientation Not on file documented as of this encounter Plan of Treatment Not on file documented as of this encounter Visit Diagnoses Not on filedocumented in this encounter Additional Health Concerns Infection Onset Date Last Indicated Resolved Time COVID-19 Rule Out 10/07/2021 10/07/2021 10/07/2021 2:33 PM FURNACE FITTER COVID-19 Confirmed 10/07/2021 10/07/2021 11:54 PM FURNACE FITTER documented as of this encounter Care Teams Geophysics Professor Relationship Specialty Start Date End Date Phil Conner II, DO PCP - General Internal Medicine 05/15/18 10/29/20 Provider, No Primary . LIZZIE VALVERDE [id number] PCP - General 10/30/20 documented as of this encounter Additional Source Comments PLEASE NOTE: Replies to this message will not be received.[employer]
--- OUTSIDE RECORDS SUMMARY | 2024-11-26 12:46 | XMS_ITS | Encounter Summary ---
Author Organization [employer] Address [address] [place] [address] Care Team Providers Care It Application Support Analyst Name Role Phone Ubaldo LEI DO, Robert William Primary Care Provide r Unavailable Provider, No Primary Primary Care Provider Unava ilable Encounter Details Date Type Department Care Team (Late st Contact Info) Description 02/11/[address] [address] Social History Tobacco Use Types Packs/Day Years Used Date Smoking Tobacco: Never Smokeless Tobacco: Never Comments Unknown Sex and Gender Information Value Date Recorded Sex Assigned at Not on file Legal Sex Female 9:14 PM BRAND PROTECTION MANAGER Gender Identity Not on file Sexual Orientation Not on file documented as of this encounter Plan of Treatment Not on file documented as of this encounter Visit Diagnoses Not on filedocumented in this encounter Additional Health Concerns Infection Onset Date Last Indicated Resolved Time COVID-19 Rule Out 10/07/2021 10/07/2021 10/07/2021 2:33 PM BRAND PROTECTION MANAGER COVID-19 Confirmed 10/07/2021 10/07/2021 11:54 PM BRAND PROTECTION MANAGER documented as of this encounter Care Teams It Application Support Analyst Relationship Specialty Start Date End Date Phil Conner II, DO PCP - General Internal Medicine 05/15/18 10/29/20 Provider, No Primary . LIZZIE VALVERDE [id number] PCP - General 10/30/20 documented as of this encounter Additional Source Comments PLEASE NOTE: Replies to this message will not be received.[employer]
--- OUTSIDE RECORDS SUMMARY | 2024-11-26 12:46 | XMS_ITS | Referral Summary ---
Author Organization [employer] Address [address] [place] [id number] Care Team Providers Care Dyeing Machine Feeder Name Role Phone Provider, No Primary Primary [...] Quadrival ent Preserv Free, (>6 months) 08/02/2019 Social History Tobacco Use Types Packs/Day Years [...] on file Legal Sex Female 9:14 PM PUSH BUTTON SWITCH ASSEMBLER Gender Identity Not on file Sexual Orientation Not on file Last Filed Vital Signs Vital Sign Reading Time Taken Comments Blood Pressure 151/79 10/19/2021 6:00 AM PUSH BUTTON SWITCH ASSEMBLER Pulse 82 10/19/2021 6:00 AM PUSH BUTTON SWITCH ASSEMBLER Temperature 36.8 C (98.3 F) 10/19/2021 6:00 AM PUSH BUTTON SWITCH ASSEMBLER Respiratory Rate 21 10/19/2021 6:00 AM PUSH BUTTON SWITCH ASSEMBLER Oxygen Saturation 91% 10/19/2021 7:2 7 AM PUSH BUTTON SWITCH ASSEMBLER Just returned from bathroom Inhaled Oxygen Concentration - - Weight 70.3 kg (154 lb 15.7 oz) 10/19/2021 6:00 AM PUSH BUTTON SWITCH ASSEMBLER Height 160 cm (5' 3) 10/07/2021 6:19 PM PUSH BUTTON SWITCH ASSEMBLER Body Mass Index 27.45 10/07/2021 6:19 PM PUSH BUTTON SWITCH ASSEMBLER Functional Status * Are you deaf or do you have serious difficulty hearing? Answer Date of Assessment Author No 10/07/2021 6:00 PM Brenda Bearden RN * Are you blind or do you have serious difficulty seeing, even when wearing glasses? Answer Date of Assessment Author No 10/07/2021 6:00 PM Brenda Bearden RN * Do you have serious difficulty walking or climbing stairs? Answer Date of Assessment Author No 10/07/2021 6:00 PM Brenda Bearden RN * Do you have difficulty dressing or bathing? Answer Date of Assessment Author No 10/07/2021 6:00 PM Brenda Bearden RN * Do you have difficulty doing errands alone such as visiting a doctor's office or shopping because of a physical, mental, or emotional condition? Answer Date of Assessment Author No 10/07/2021 6:00 PM Brenda Bearden RN Mental Status * Do you have trouble concentrating, remembering, or making decisions because of a physical, mental, or emotional condition? Answer Entry Date Author No 10/07/2021 6:00 PM Brenda Bearden RN Plan of Treatment Not on file Procedures Procedure Name Priority Date/Time Associated Diagnosis [...] Description: MAMMOGRAM DIAGNOSTIC YO BILATERAL Exam Code: [id number]/USRT ABNORMAL REPORT Clinical History: 63-year-old with palpable [...] Description: MAMMOGRAM DIAGNOSTIC YO BILATERAL Exam Code: [id number] ABNORMAL REPORT Clinical History: 63-year-old with palpable [...] of this examination. Author: ESTEPHANIE Anand, TAINA Phil Conner II, DO RAD MAMMO Final Result from Last 3 Months or Most Recently Relevant to Health Maintenance Insurance MEDICARE [place] [id number] MEDICARE A AND B CIGNA SUPPLEMENT MEDICARE A AND B CIGNA SUPPLEMENT Advance Directives * Full Code (Latest Code Status on File) Date Activated Date Inactivated Comments 10/07/2021 6:35 PM 10/19/2021 5:46 PM Care Teams Dyeing Machine Feeder Relationship Specialty Start Date End Date Provider, No Primary . LIZZIE VALVERDE [id number] PCP - General 10/30/20 Additional Source Comments PLEASE NOTE: Replies to this message will not be received.[facility] and [facility]
--- OUTSIDE RECORDS SUMMARY | 2024-11-26 12:46 | XMS_ITS | Encounter Summary ---
Author Organization [facility] Address [address] [place] [address] Care Team Providers Care Tax Revenue Officer Name Role Phone Unknown, Provider Primary Care Provider Unavaila ble Ubaldo LEI DO, Robert William Primary Care Provide r Unavailable Provider, No Primary Primary Care Provider Unava ilable Encounter Details Date Type Department Care Team (Late st Contact Info) Description 05/07/2018 Historical Conversion [facility] [address] [place] [address] [place] [address] Phil Conner II, DO Social History Tobacco Use Types Packs/Day Years Used Date Smoking Tobacco: Never Assessed Comments Unknown Sex and Gender Information Value Date Recorded Sex Assigned at Not on file Legal Sex Female 9:14 PM ICE GRINDER Gender Identity Not on file Sexual Orientation Not on file documented as of this encounter Last Filed Vital Signs Vital Sign Reading Time Taken Comments Blood Pressure 123/81 05/07/2018 12:00 AM CDT Pulse - - Temperature - - Respiratory Rate - - Oxygen Saturation - - Inhaled Oxygen Concentration - - Weight 74 kg (163 lb 2.3 oz) 05/07/2018 12:00 AM CDT Height - - Body Mass Index - - documented in this encounter Mental Status documented in this encounter Progress Notes * Phil Conner II, DO - 05/07/2018 12:00 AM CDT Assessment 1. Never smoked 2. BMI Greater or Equal to 25, Age 12+ (278.02) (E66.3) Right breast lump, most likely cancer and most likely metastatic, given CT scan. Plan The patient will be set up for a ultrasound guided biopsy to be done tomorrow. We contact Oncology,so they will have a follow up with her after the results of the histology. 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 I did contact her and camryn know the results and explain to her that we will be awaiting the further histology and consultation from Oncology. Plan Orders BMI Greater or Equal to 25, Age 12+ At your visit today we identified that you have an elevated Body Mass Index (BMI). We have developed some tips below to help you lower your weight and BMI. - Eat healthy meals low in saturated fat, trans fat, refined carbohydrates, and processed foods. - Focus on eating lean protein, fruits, vegetables, and low-fat dairy products. - Be active by choosing activities you really enjoy! - Start slowly and work up to 150 minutes per week. - Be realistic about your weight loss goals, remember you did not gain the weight overnight and it will not come off overnight. - A moderate weight loss of to 2 pounds per week following the above recommendations will allow you to lose the weight in a healthy way and keep it off. - Please ask us about resources available in our communities and region such as local fitness centers, local nutrition education programs, [employer] (in [facility]), Weight Watchers, and [email or web address]??_ Weight Control Center.; Status:Complete; Done: [id number] SocHx: Never smoked Never Smoked: Since tobacco use can have significant health risks, you are helping yourself and others stay healthy by never smoking.; Status:Complete; Done: [id number] Reason For Visit Urg care follow up - breast lump History of Present Illness This is a 63-year-old female who comes in today for a breast lump. She underwent a CT scan which showed most likely metastatic cancer. She has not had a biopsy. She does not know the results, however, in discussing with her, she does feel as though she did understand that this was most likely goingto be the answer given her follow up and what they found. We did discuss with her about the next step in her overall care and she will need to have a full evaluation with an ultrasound guided biopsy.We did talk to surgery and they felt that this would be the best next step. Given the fact that theCT scan shows most likely metastatic, surgery is not going to be an answer as she is not having symptomatic pain with the lump, but given we do not know what is going on, the next step will have to be to find the results of the lump. Past Medical History 1. BMI Greater or Equal to 25, Age 12+ (278.02) (E66.3) 2. Cystitis, acute (595.0) (N30.00) 3. Elevated TSH (794.5) (R79.89) 4. Lump or mass in breast (611.72) (N63.0) Surgical History 1. History of Colonoscopy (Fiberoptic) 2. History of Upper Gastrointestinal Endoscopy (Therapeutic) Social History 1. Never smoked Current Meds 1. No Reported Medications Recorded Vitals Vital Signs Recorded: [id number] 02:02PM Systolic 123 Diastolic 81 Heart Rate 98 Respiration 20 Temperature 99.6 F Weight 74 kg BMI Calculated 27.79 BSA Calculated 1.8 O2 Saturation 95 Physical Exam EYES:Pupils equal, round, reactive to light and accommodation. Extraocular muscles intact. Funduscopic exam benign.Tympanic membrane intact, cone of light noted.No erythema, no lesion.Regular rate and rhythm without murmur, S3, S4, gallop, or rub. PMI nondisplaced.Clear to auscultation without egophony, wheeze, bronchial breath sounds, change in tactile fremitus.Bowel sounds heard. No masses, no bruits, nontender, no hepatosplenomegaly, no jaundice, no Benny's, no guarding, no rebound, no rigidity.No clubbing, cyanosis, or edema. Capillary refill within two seconds. Pulses 2/4 bilaterally, upper and lower extremities. Signatures Phil Conner II, D.OCallum/[email or web address] Electronically signed by : Phil Conner DO; May 21 2018 8:21AM ICE GRINDER documented in this encounter Plan of Treatment Not on file documented as of this encounter Visit Diagnoses Not on filedocumented in this encounter Additional Health Concerns Infection Onset Date Last Indicated Resolved Time COVID-19 Rule Out 10/07/2021 10/07/2021 10/07/2021 2:33 PM ICE GRINDER COVID-19 Confirmed 10/07/2021 10/07/2021 02/03/202 2 11:54 PM ICE GRINDER documented as of this encounter Care Teams Tax Revenue Officer Relationship Specialty Start Date End Date Unknown, Provider . LIZZIE TREVINO [id number] PCP - General 05/22/17 05/14/18 Phil Conner II, DO PCP - General Internal Medicine 05/15/18 10/29/20 Provider, No Primary . LIZZIE VALVERDE [id number] PCP - General 10/30/20 documented as of this encounter Additional Source Comments PLEASE NOTE: Replies to this message will not be received.[facility] and [facility]
--- OUTSIDE RECORDS SUMMARY | 2024-11-26 12:46 | XMS_ITS | Encounter Summary ---
Author Organization [facility] Address [address] [place] [address] Care Team Providers Care Music Leader Name Role Phone Unknown, Provider Primary Care Provider Unavaila charles Conner II, DO, Phil Reyna Primary Care Provide r Unavailable Provider, No Primary Primary Care Provider Unava ilable Encounter Details Date Type Department Care Team (Late st Contact Info) Description 05/04/2018 Historical Conversion [facility] Medicine [address] [place] [address] [place] [address] Ricky Arthur MD Social History Tobacco Use Types Packs/Day Years Used Date Smoking Tobacco: Never Assessed Comments Unknown Sex and Gender Information Value Date Recorded Sex Assigned at Not on file Legal Sex Female 9:14 PM JAVA J2EE TECHNICAL LEAD Gender Identity Not on file Sexual Orientation Not on file documented as of this encounter Last Filed Vital Signs Vital Sign Reading Time Taken Comments Blood Pressure 128/83 05/04/2018 12:00 AM CDT Pulse - - Temperature - - Respiratory Rate - - Oxygen Saturation - - Inhaled Oxygen Concentration - - Weight 73 kg (160 lb 15 oz) 05/04/2018 12:00 AM CDT Height - - Body Mass Index - - documented in this encounter Mental Status documented in this encounter Progress Notes * Ricky Arthur MD - 05/04/2018 12:00 AM CDT [facility] : 1955 HX: [id number] DOS: 05/04/2018 SUBJECTIVE: This is a 63-year-old female who presents to the Urgent Care clinic for a breast mass. The patient has noted over the past several weeks an enlarging mass in her right breast. It is not painful but it has been getting bigger. She is pretty sure it is breast cancer. Her mother and grandmother both have had breast cancer. She has noted over the past couple of weeks she has been feeling fatigued. She has been having hot and cold chills and sensation of temperature intolerance. Appetitehas been waxing and waning. She does admit to some recent weight loss. However, she attributes thatto recently going gluten- free. She has had some loose stools here and there but nothing that she is concerned about. She has not had any chest pain or palpitations. She denies any swelling in her joints. She does have some generalized aches, which do not really concern her. She has a history of hypothyroidism. At one time she had been on Synthroid. One of the main reasons, besides the breast mass that she is coming in for today, is to see if she needs to be on thyroid medicine. She attributes the majority of her symptoms, the weight loss, the hot and cold intolerance and difficulty sleeping, to possibly being due to a thyroid issue. The patient currently does not have a primary care provider. She has never been screened for breastcancer. She indicates she is hoping to establish care with Dr. Conner. REVIEW OF SYSTEMS: A 10 point review of systems is completed and negative other than above. PAST MEDICAL HISTORY: 1. Hypothyroidism. 2. No history of asthma. 3. No history of diabetes. ALLERGIES: No known drug allergies. MEDICATIONS: None. HABITS: The patient is a non-smoker. FAMILY HISTORY: Mother and grandma with breast cancer. OBJECTIVE: Vital Signs: Vital signs reviewed in [employer]. Please see vitals tab for details. Stable. Patientis afebrile with a temperature at 96.9. Weight today is 73 kg. The most recent weight we have to compare this to is in October 2013 at 83 kg. General: The patient is alert, awake and oriented x three. No acute distress. HEENT: Head: Normocephalic and atraumatic. Eyes: PERRLA. EOMI x two. Ears: Tympanic membranes are gardner and flat. Oropharynx: Clear. Neck: Supple. Respiratory: Clear to auscultation bilaterally. Cardiovascular: Regular rate and rhythm. Extremities: No edema. Breasts: The right breast, on the outer quadrant there is an ulcerating mass. When I palpate aroundthe mass, it goes significantly deeper into the breast from what I am able to see. It is not tenderwhen I palpate it. There is no evidence of any discharge or infection. RESULTS: Reviewed and discussed with patient. TSH 6.8. Basic panel shows BUN 27, creatinine 0.95. CBC unremarkable. Free T4 is 1.08. Chest CT impression: Findings highly concerning for primary right breast malignancy with extensive metastatic disease through the lungs and bones. The primary malignancy of the right breast extends through the pectoralis as well as skin surface. There is also noted extensive destructive metastatic disease throughout the spine, sternum and pelvic bones. ASSESSMENT: 1. Primary right breast cancer with extensive metastatic disease through lungs and bones. 2. Subclinical hypothyroidism. PLAN: 1. Referral placed for General Surgery for tissue diagnosis. 2. Referral to Oncology was placed. 3. I did speak with Dr. Conner, he has agreed to see the patient on Monday to discuss the results. The findings of the CT have not been discussed with Aurea ascencio. 4. Regarding the subclinical hypothyroidism, the patient???s free T4 is within the normal range. Wewill leave it up to Dr. Conner on how to manage this. Ricky Arthur M.D./[id number] Electronically signed by:Ricky Arthur M.D. May 07 2018 8:55AM JAVA J2EE TECHNICAL LEAD Author documented in this encounter Plan of Treatment Not on file documented as of this encounter Visit Diagnoses Not on filedocumented in this encounter Additional Health Concerns Infection Onset Date Last Indicated Resolved Time COVID-19 Rule Out 10/07/2021 10/07/2021 10/07/2021 2:33 PM JAVA J2EE TECHNICAL LEAD COVID-19 Confirmed 10/07/2021 10/07/2021 2 11:54 PM JAVA J2EE TECHNICAL LEAD documented as of this encounter Care Teams Music Leader Relationship Specialty Start Date End Date Unknown, Provider . LIZZIE TREVINO [id number] PCP - General 05/22/17 05/14/18 Phil Conner II, DO PCP - General Internal Medicine 05/15/18 10/29/20 Provider, No Primary . LIZZIE VALVERDE [id number] PCP - General 10/30/20 documented as of this encounter Additional Source Comments PLEASE NOTE: Replies to this message will not be received.[facility] and [facility]
--- OUTSIDE RECORDS SUMMARY | 2024-11-26 12:46 | XMS_ITS | Clinical Summary ---
Author Organization [facility] Address [address] [place] [address] Care Team Providers Care Conflicts Analyst Name Role Phone No Primary/Referring, Phy Primary Care Provider Unavailable Source Comments You are receiving this document as you are listed as the primary care provider,follow-up provider, or the patient has been referred to you for consultation.This is in compliance with the Medicare and[facility] EHR Incentive Program,which states Providers who transition their patient to another setting of careor provider of care or refers their patient to another provider of care shouldprovide summary care record for each transition of care or referral. [employer] Allergies No known active allergies Medications enoxaparin (LOVENOX) 80 MG/0.8ML prefilled syringe Inject 0.7 mL (70 mg) subcutaneously two times a day. 2 Active loperamide (IMODIUM) 2 MG capsule Take 1 Capsule (2 mg) by mouth as needed. 2 Active Potassium Chloride ER 20 MEQ TBCR Take 1 Tablet (20 mEq) by mouth two times a day. 2 Active Immunizations Immunization Administration Dates Next Due Influenza ccIIV3 6 months+ (Flucelvax) 9 Family History Medical History Relation Name Comments Cancer, Breast Mother Other Mother Relation Name Status Comments Father Mother Social History Tobacco Use Types Packs/Day Years Used Date Smoking Tobacco: Never Smokeless Tobacco: Never Comments No Sex and Gender Information Value Date Recorded Sex Assigned at Not on file Legal Sex Female 10:58 AM CDT Gender Identity Not on file Sexual Orientation Not on file Last Filed Vital Signs Vital Sign Reading Time Taken Comments Blood Pressure 121/86 12/05/2022 4:02 PM CDT Pulse 86 12/05/2022 4:02 PM CDT Temperature 37.2 C (99 F) 12/05/2022 4:02 PM CDT Respiratory Rate 22 12/05/2022 4:02 PM CDT Oxygen Saturation 96% 12/05/2022 4:02 PM CDT Inhaled Oxygen Concentration - - Weight 64.9 kg (143 lb) 12/05/2022 2:06 PM CDT Height 160 cm (5' 3) 12/05/2022 2:06 PM CDT Body Mass Index 25.33 12/05/2022 2:06 PM CDT Plan of Treatment Health Maintenance Due Date Last Done Comments Colon Cancer Screening Plan Due 1955 Hep C Screening (Preventive Services) 1955 Medicare Annual Wellness Visit 1955 DTaP/Tdap/Td (1 - Tdap) 1974 Cholesterol 2000 Pneumococcal 50+ Yrs (1 of 1 - PCV) 2005 Zoster/Shingles (1 of 2) 2005 Mammogram 02/05/2020 02/04/2019, 05/08/2018 Dexa 2020 COVID-19 Vaccine ( - 2023-2 5 season) 2024 Influenza (#1) 2024 07/27/2020, 08/02/2019, 08/13/2018 RSV (1 - 1-dose 75+ series) 2030 HepA Aged Out No longer eligi ble based on patient's age to complete this topic HepB Aged Out No longer eligi ble based on patient's age to complete this topic Hib Aged Out No longer eligi ble based on patient's age to complete this topic IPV (Polio) Aged Out No longer eligi ble based on patient's age to complete this topic MCV4 Aged Out No longer eligi ble based on patient's age to complete this topic Meningococcal B Aged Out No longer el igible based on patient's age to complete this topic Insurance MEDICARE Member Subscriber Plan / Payer (Ef fective 2020-Present) Name:Rosa Alvarado Member ID:[id number] Relation to Subscriber:Self Name:DimitrihussainSahara acevedochristina Salas Subscriber ID:[id number] Payer ID:Not on file Group ID:Not on file Type:Medicare Address: ATTN CLAIMS [address] [place] [address] [facility] MEDIC[facility] SUPPLEMENT MEDICARE [facility] MEDICARE SUPPLEMENT MEDICARE [facility] MEDICARE SUPPLEMENT MEDICARE [facility] MEDICARE SUPPLEMENT Care Teams Conflicts Analyst Relationship Specialty Start Date End Date No Primary/Referring, Phy PCP - General 10/30/20
--- NOTE | 2024-11-26 13:18 | ED.GENADULT ---
HPI - General Adult General Date Seen: 11/26/24 Chief complaint: Shortness of Breath/Dyspnea Stated complaint: Difficulty breathing Time Seen by Provider: 11/26/24 13:16 History of Present Illness HPI narrative: 69 yo F who is currently on chemotherapy for metastatic cancer. She follows with [facility] for oncology care. She had her last round of chemo about 8 days ago, last Monday. She also takes Eliquis for anticoagulation of previous PE. She is not on any other regular medications at home. On her med list, dexamethasone is listed but she says she has not been taking it since last week because she only takes it on the day she gets chemo She has been sick since last Monday with symptoms of cough, fatigue, and poor appetite. Cough has been fairly persistent all week long. Is perhaps a little bit worse today, but really she came to the ER because her cough is just failing to improve. Cough is nonproductive. She does not real for short of breath. No chest pain. She is not having any abdominal pain or nausea but does have a poor appetite. Her family has been trying to get her to eat and drink but she just does not feel hungry or thirsty. She is feeling somewhat weak. She is not dizzy or lightheaded. She has not had a fever. Patient thinks she has, ?the flu. ? She has no history of asthma or lung disease. Patient is able to come she is on chemotherapy she does not know what med she is on. Her last round of chemotherapy was last Monday, 11/18. I asked for faxed records for past medical history from [facility] where she goes for Oncology for her cancer. According to those records she has Drug-induced interstitial lung disease Pulmonary embolism History of hypercalcemia History of hyperkalemia Right-sided breast cancer with metastasis Tricuspid regurgitation Medication list include Apixaban 5 mg b.i.d. Dexamethasone 8 mg daily for 3 days around chemotherapy Voltaren gel Imodium p.r.n. Zyprexa q.h.s. around chemotherapy and for 4 days thereafter She is on carboplatin and gemcitabine for chemotherapy. She was transferred to [facility] in September for septic shock in the setting of metastatic breast cancer on chemo. Per recent history and physical from 10/16/2024, code status is DNR/DNI. Related Data Home Medications ?Medication ?Instructions ?Recorded ?Confirmed apixaban .Route 10/16/24 dexamethasone .ROUTE 10/16/24 apixaban 5 mg tablet (Eliquis) mg 11/26/24 dexamethasone 4 mg tablet mg 11/26/24 Allergies Allergy/AdvReac Type Severity Reaction Status Date / Time No Known Drug Allergies Allergy Verified 11/26/24 18:01 [facility] Social History Smoking Status: Never smoker How often do you have a drink containing alcohol: never AUDIT-C Alcohol total score: 0 Non-prescribed substance use: denies use Exam Narrative: Exam Narrative: Constitutional: Appears well-developed and well-nourished. Alert. Conversant. Non toxic. Occasional dry cough. HENT: Head: Atraumatic. Nose: Nose normal. Mouth/Throat: Oral mucosa is clear but mucous membranes are dry, not desiccated or cracked no trismus. Pharynx normal. Tonsils symmetric. No tonsillar enlargement, erythema, or exudate. Eyes: Conjunctivae normal. EOM normal. Pupils equal, round, and reactive to light. No scleral icterus. Neck: Normal range of motion. Neck supple. No tracheal deviation present. Cardiovascular: Tachycardic, 105 on the monitor while she is resting in, regular rhythm. No gallop. No friction rub. No murmur heard. Symmetric radial artery pulses Pulmonary/Chest: Effort normal. No stridor. No respiratory distress. No wheezes. No rales. No rhonchi . No tenderness. Abdominal: Soft. Bowel sounds normal. No distension. No mass. No tenderness. No rebound. No guarding. No HSM. Musculoskeletal: RUE: Normal range of motion. No tenderness. No deformity LUE: Normal range of motion. No tenderness. No deformity RLE: Normal range of motion. No edema. No tenderness. No deformity LLE: Normal range of motion. No edema. No tenderness. No deformity Neurological: Alert and oriented to person, place, and time. No focal strength deficits but she has generalized weakness.. CN II-VII intact. No sensory deficit. GCS eye subscore is 4. GCS verbal subscore is 5. GCS motor subscore is 6. Normal coordination Skin: Skin is warm and dry. No rash noted. No pallor. Normal capillary refill. Psychiatric: Normal mood. Normal affect. Polite. Const: Vital Signs, click to edit/add: Vital Signs - 24 hr 11/26/24 13:07 11/26/24 13:25 11/26/24 13:26 Temperature 98.7 F Pulse Rate 106 H 106 H Pulse Rate [Pulse Oximeter] 120 H Respiratory Rate 16 24 163 H Blood Pressure 102/67 Blood Pressure [Ri ght Upper Arm] 92/63 Pulse Oximetry 92 91 91 Oxygen Delivery Me thod Room Air 11/26/24 13:30 11/26/24 13:35 11/26/24 13:36 Temperature Pulse Rate 105 H 104 H 103 H Pulse Rate [Pulse Oximeter] Respiratory Rate 14 19 22 Blood Pressure 95/66 Blood Pressure [Ri ght Upper Arm] Pulse Oximetry 92 90 90 Oxygen Delivery Me thod 11/26/24 17:18 11/26/24 17:20 11/26/24 17:30 Temperature Pulse Rate 96 96 Pulse Rate [Pulse Oximeter] Respiratory Rate 28 H 27 H 26 H Blood Pressure 116/77 Blood Pressure [Ri ght Upper Arm] Pulse Oximetry 92 90 Oxygen Delivery Me thod 11/26/24 17:53 11/26/24 18:00 11/26/24 18:22 Temperature Pulse Rate 105 H 105 H Pulse Rate [Pulse Oximeter] Respiratory Rate 29 H 20 49 H Blood Pressure Blood Pressure [Ri ght Upper Arm] Pulse Oximetry 92 89 Oxygen Delivery Me thod 11/26/24 18:26 11/26/24 18:30 11/26/24 18:41 Temperature Pulse Rate 102 H 100 100 Pulse Rate [Pulse Oximeter] Respiratory Rate 35 H 19 29 H Blood Pressure 93/69 122/80 Blood Pressure [Ri ght Upper Arm] Pulse Oximetry 92 93 91 Oxygen Delivery Me thod 11/26/24 18:45 11/26/24 19:00 11/26/24 19:01 Temperature Pulse Rate 102 H 100 100 Pulse Rate [Pulse Oximeter] Respiratory Rate 24 27 H 25 H Blood Pressure 123/80 Blood Pressure [Ri ght Upper Arm] Pulse Oximetry 91 91 90 Oxygen Delivery Me thod 11/26/24 19:15 11/26/24 19:21 Temperature Pulse Rate 98 Pulse Rate [Pulse Oximeter] Respiratory Rate 25 H Blood Pressure 142/90 H Blood Pressure [Ri ght Upper Arm] Pulse Oximetry 91 Oxygen Delivery Me thod Course Course ED Course: Recheck-influenza is positive. Although the patient has now been sick for over week, will start her on Tamiflu given her medical comorbidities, specifically metastatic cancer on chemotherapy. Patient understands the rationale for initiating Tamiflu. Reevaluation(s) Reevaluation #1: Recheck-heart rate still around 90 or 100 after IV fluids. IV infiltrated near completion of her 1 L bolus. Still feeling quite weak. Discussed lab findings, positive influenza with the patient and her . At a higher stand at the bedside. She was able to stand up her own power but was quite weak. She was able to take 1 or 2 steps but required holding my hand for balance and strength. Vital Signs Vital signs: Initial Vital Signs Temperature 98.7 F 11/26/24 13:07 Temperature Source Temporal Artery Scan 11/26/24 13:07 Pulse Rate 120 H 11/26/24 13:07 Respiratory Rate 16 11/26/24 13:07 Blood Pressure 92/63 11/26/24 13:07 Blood Pressure Mean 72 11/26/24 13:07 Blood Pressure Position Sitting 11/26/24 13:07 Pulse Oximetry 92 11/26/24 13:07 Oxygen Delivery Method Room Air 11/26/24 13:07 Vital Signs Temperature 98.7 F 11/26/24 13:07 Pulse Rate 120 H 11/26/24 13:07 Respiratory Rate 16 11/26/24 13:07 Blood Pressure 92/63 11/26/24 13:07 Pulse Oximetry 92 11/26/24 13:07 Oxygen Delivery Method Room Air 11/26/24 13:07 Temperature 98.7 F 11/26/24 13:07 Pulse Rate 98 11/26/24 19:15 Respiratory Rate 25 H 11/26/24 19:15 Blood Pressure 142/90 H 11/26/24 19:21 Pulse Oximetry 91 11/26/24 19:15 Oxygen Delivery Method Room Air 11/26/24 13:07 Medications Administered Medications: Discontinued Medications Generic Name Dose Route Start Last Admin Trade Name Freq PRN Reason Stop Dose Admin Albuterol/Ipratropium 1 neb 11/26/24 14:13 11/26/24 19:03 Iprat-Albut 0.5-2.5 Mg/3 Ml Neb IH 11/26/24 14:14 Not Given ONCE ONE Sodium Chloride 1,000 mls @ 1,000 mls/hr 11/26/24 14:15 11/26/24 19:04 0.9 % Sodium Chloride 1000 Ml IV 11/26/24 15:14 Infused .Q1H KAREN Infusion Lactated Ringer's 1,000 mls @ 1,000 mls/hr 11/26/24 16:49 11/26/24 18:59 Lactated Ringers 1000 Ml IV 11/26/24 17:48 Infused .Q1H ONE Infusion Oseltamivir Phosphate 75 mg 11/26/24 14:33 11/26/24 14:59 Oseltamivir Phosphate 75 Mg Capsule PO 11/26/24 14:34 75 mg ONCE ONE Administration Medical Decision Making MDM Narrative Medical decision making narrative: Pleasant 69-year-old female currently on chemotherapy through the [facility] for metastatic cancer presents to the ER today with a 7 or 8 day history of cough, fatigue, poor appetite, along with some generalized weakness Differential is broad. Nasal swab is positive for influenza a which is likely the cause of the symptoms. Although she has been sick now for over a week, will start her on Tamiflu. First dose given here in the ER. Chest x-ray shows no evidence for active pneumonia, pleural effusion, empyema, CHF, or other definite acute abnormality. It does show evidence for bony metastatic disease. CBC shows a white count of 3.0, disease with an adequate neutrophil count of 2.2. She is anemic with a hemoglobin 9.9, similar to hemoglobin measurement from last month when she was here the hospital (was 10.3). She was clinically tired and dehydrated at presentation. She had sinus tachycardia with a heart rate of 120 at triage which came down to about 1051 she was resting in bed. After a L of IV fluid, heart rate is now in the 90s, up to around 100. Even after IV fluids she remains quite weak. I had her stand at the bedside with me and she was able to get herself up to sitting and then get her P down on the floor. She required assistance from me to for balance standing up at the bedside and she is able to walk about 1 step for she had to sit back down due to generalized weakness. No focal deficits or ataxia. Given baseline of chemotherapy with her generalized weakness and positive influenza she will require admission. Started on Tamiflu here. At this point no clear evidence for bacterial infection or sepsis so will hold off on antibiotics. Discussed with our hospitalist, Dr. Humphrey. She request that we obtain a CT scan of the patient's chest to make sure there is no pulmonary embolism and if it is negative she will admit the patient medically. CT scan came back showing no evidence for active PE although limited by motion artifact. There are multiple no or the findings including breast cancer with liver Mets, bone Mets, lung meds. Also at T9 compression fracture which was present previously. Patient requires admission to the hospital for nursing supportive care. Will be admitted to the hospitalist service Lab Data Labs: Lab Results 11/26/24 11/26/24 Range/Units 13:15 15:25 WBC 3.00 L (4.50-11.00) K/uL RBC 2.91 L (4.00-5.20) m/uL Hgb 9.9 L (12.0-16.0) gm/dL Hct 31.0 L (33.0-51.0) % MCV 107 H (80-100) fL MCH 34 (26-34) pg MCHC 32 (32-36) gm/dL RDW Coeff of Christopher 18.2 H (11.5-15.5) % Plt Count 51 L (140-440) K/uL Neut % (Auto) 71.9 (42.0-72.0) % Lymph % (Auto) 13.7 L (20-44) % [place] % (Auto) 12.7 H (0.0-11.0) % Eos % (Auto) 0.7 (0.0-7.0) % Baso % (Auto) 0.3 (0.0-3.0) % Neut # (Auto) 2.20 (1.7-7.0) K/uL Lymph # (Auto) 0.40 L (0.90-2.90) K/uL [place] # (Auto) 0.40 (0.00-0.90) K/UL Eos # (Auto) 0.00 (0.00-0.50) K/uL Baso # (Auto) 0.00 (0.00-0.30) K/uL Abs Immat Gran (auto) 0.00 (0.00-0.30) K/uL Imm/Tot Granulo (auto) 0.7 % Diff Slide Review Acceptable Review (Acceptable) Sodium 135 (135-149) mmol/L Potassium 3.8 (3.6-5.1) mmol/L Chloride 103 (96-114) mmol/L Carbon Dioxide 24 (20-32) mmol/L Anion Gap 8 (7-15) mEq/L BUN 8 (7-30) mg/dL Creatinine 0.5 (0.5-1.5) mg/dL Estimated Creat Clear 43.92 Estimated GFR 101 ml/min Glucose 88 (60-115) mg/dL Lactate 2.1 H (0.5-1.9) mmol/L Calcium 9.4 (8.4-10.6) mg/dL Troponin I < 0.01 L (0.01-0.04) ng/mL NT-Pro-B Natriuret Pep 372 pg/mL SARS-CoV-2 (PCR) Negative SARS-CoV-2 (Negative) Influenza Type A (PCR) POSITIVE PCR FLU A A (Negative) Influenza Type B (PCR) Negative PCR FLU B (Negative) RSV (PCR) Negative PCR RSV (Negative) Imaging Data Chest x-ray: Attestation: I have reviewed the pertinent imaging results. Radiologist's impression: Impression: 1. No acute pulmonary process. 2. Linear atelectasis and/or scar in the right mid lung zone. 3. Diffuse bony metastatic disease. CT scan - chest: Attestation: I have reviewed the pertinent imaging results. Radiologist's impression: IMPRESSION: 1. Significantly limited study secondary to motion artifact. No large central pulmonary embolus. Multiple segmental and subsegmental pulmonary arteries are inadequately evaluated. 2. Irregular peribronchial and septal thickening scattered throughout the lungs, may reflect component of lymphangitic carcinomatosis versus scarring. Multiple subcentimeter spiculated pulmonary nodules are worrisome for pulmonary metastases. Small right pleural effusion. 3. Probable mediastinal and bilateral hilar lymph node metastases. 4. Again seen is irregular enhancing right breast mass, which may reflect a primary breast neoplasm. 5. Extensive hepatic metastases and osseous metastases. Worsening of the T9 pathologic fracture. ECG Data Attestation: I personally reviewed and interpreted this ECG as follows: Interpretation: Normal sinus rhythm Rate: 92 MS: 146 QRS axis: Normal axis. ST segment/T wave: No ST segment elevation or depression. Nonspecific T-wave flattening. QTc: 452 Discharge Plan Discharge Clinical Impression: Influenza A, Generalized weakness, Breast cancer metastasized to multiple sites Patient Disposition: Admitted As Observation
[2024-11-26 14:14] LABS: PCR FLU A POSITIVE PCR FLU A (Negative); PCR FLU B Negative PCR FLU B (Negative); PCR RSV Negative PCR RSV (Negative); SARS PCR* Negative SARS-CoV-2 (Negative)
[2024-11-26] MEDS: OSELTAMIVIR PHOSPHATE 75 MG CAPSULE PO ×2 (14:59→22:24)
[2024-11-26] MEDS: 0.9 % SODIUM CHLORIDE 1000 ml 1,000 ML IV (15:27)
[2024-11-26 15:30] LABS: Lactate* 2.1 mmol/L (0.5-1.9)
[2024-11-26 15:32] LABS: Basophils Percent Auto 0.3 % (0.0-3.0); Eosinophils Percent Auto 0.7 % (0.0-7.0); Hemoglobin* 9.9 gm/dL (12.0-16.0); Immature Granulocytes Pct Auto 0.7 %; Lymphocytes Percent Auto 13.7 % (20-44); Mean Corpuscular HGB Conc 32 gm/dL (32-36); Mean Corpuscular Hemoglobin 34 pg (26-34); Mean Corpuscular Volume 107 fL (80-100); Monocytes Percent Auto 12.7 % (0.0-11.0); Neutrophils Percent Auto 71.9 % (42.0-72.0); Platelet Count* 51 K/uL (140-440); RDW Coefficient of Variation % 18.2 % (11.5-15.5); Red Blood Count 2.91 m/uL (4.00-5.20)
[2024-11-26 15:39] LABS: Slide Review Reflex Yes
[2024-11-26 15:44] LABS: Chloride* 103 mmol/L (96-114)
[2024-11-26 15:45] LABS: Potassium* 3.8 mmol/L (3.6-5.1); Sodium* 135 mmol/L (135-149)
[2024-11-26 15:48] LABS: Anion Gap 8 mEq/L (7-15); Blood Urea Nitrogen* 8 mg/dL (7-30); Calcium* 9.4 mg/dL (8.4-10.6); Carbon Dioxide* 24 mmol/L (20-32); Creatinine* 0.5 mg/dL (0.5-1.5); Est. Creatinine Clearance* 43.92; Estimated Glomerular Filt Rate 101 ml/min; Glucose* 88 mg/dL (60-115)
[2024-11-26 16:11] LABS: NT Pro B Type NatriureticPept* 372 pg/mL; Troponin I* < 0.01 ng/mL (0.01-0.04)
[2024-11-26 16:38] LABS: Slide Review Acceptable Review (Acceptable)
[2024-11-26] MEDS: LACTATED RINGERS 1000 ML 1,000 ML IV (16:59)
--- NOTE | 2024-11-26 17:46 | CRLHL7_ITS ---
For Patients: As a result of the Century Cures Act, medical imaging exams and procedure reports are released immediately into your electronic medical record. You may view this report before your referring provider. If you have questions, please contact your health care provider. INDICATION: Cough, weakness, influenza. TECHNIQUE: CT chest PE was acquired with 95 cc Isovue 370 IV contrast. COMPARISON: Significantly material FINDINGS: Heart and vasculature: No cardiomegaly, no pericardial effusion. Limited evaluation secondary to significant motion artifact. No large central pulmonary embolus is identified. However, multiple segmental and subsegmental pulmonary arteries are inadequately evaluated. Lungs and pleura: Irregular peribronchial and septal thickening scattered throughout the lungs, may reflect component of lymphangitic carcinomatosis or scarring. Multiple subcentimeter spiculated pulmonary nodules. Small right pleural effusion. Thyroid and lower neck: Subcentimeter thyroid nodules are noted. Mediastinum/demetri: Mildly enlarged mediastinal and bilateral hilar lymph nodes. Chest wall: Again seen is irregular enhancing right breast mass, which may reflect a primary breast neoplasm. Upper abdomen: Innumerable infiltrative hepatic masses, compatible with metastases, better assessed on prior CT. Bones: Numerous sclerotic lesions within the axial and appendicular skeleton, concerning for osseous metastases. Pathologic fracture of T9 has worsened since prior study. IMPRESSION: 1. Significantly limited study secondary to motion artifact. No large central pulmonary embolus. Multiple segmental and subsegmental pulmonary arteries are inadequately evaluated. 2. Irregular peribronchial and septal thickening scattered throughout the lungs, may reflect component of lymphangitic carcinomatosis versus scarring. Multiple subcentimeter spiculated pulmonary nodules are worrisome for pulmonary metastases. Small right pleural effusion. 3. Probable mediastinal and bilateral hilar lymph node metastases. 4. Again seen is irregular enhancing right breast mass, which may reflect a primary breast neoplasm. 5. Extensive hepatic metastases and osseous metastases. Worsening of the T9 pathologic fracture. Please note that all CT scans at this facility use dose modulation, iterative reconstruction, and/or weight-based dosing when appropriate to reduce radiation dose to as low as reasonably achievable. Dictated by Heather Reece MD @ 11/26/2024 7:17:23 PM (Electronically Signed)
--- NOTE | 2024-11-26 21:05 | PM.IMHP1 ---
Hospitalist- H&P: HPI History of Present Illness Date Seen: 11/26/24 Chief complaint: Difficulty breathing Narrative: Rosa Alvarado is a 69 year old female with past medical history of pulmonary embolism on anticoagulation, breast cancer metastasis who presents to the ED with generalized weakness, dry cough and anorexia. Patient tested positive for influenza A. She is currently on chemotherapy for breast cancer metastasis and her labs suggest pancytopenia secondary to chemotherapy, her last dose was about 8 days ago and she mentioned that she missed her dose yesterday because of extreme fatigue. Patient denies fevers, chills, lightheadedness, chest or abdominal pain, urinary symptoms. No hx of COPD or Asthma. At the ED, patient's O2 sats were at low 90s on room air, she is not requiring oxygen. Mildly tachycardic and EKG shows sinus tachycardia. CTA chest showed: No large central pulmonary embolus. 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 Worsening of the T9 pathologic fracture. Patient received 2 L of IV fluid at the ED and 1st dose of oseltamivir. 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 (ICD-10) History of pulmonary embolism ?Z86.711 - Personal history of pulmonary embolism (ICD-10) Social History Smoking Status: Never smoker How often do you have a drink containing alcohol: never AUDIT-C Alcohol total score: 0 Non-prescribed substance use: denies use Meds Home Medications and Allergies Home Medications ?Medication ?Instructions ?Recorded ?Confirmed ?Type apixaban .Route 10/16/24 History dexamethasone .ROUTE 10/16/24 History apixaban 5 mg tablet (Eliquis) mg 11/26/24 History dexamethasone 4 mg tablet mg 11/26/24 History Allergies Allergy/AdvReac Type Severity Reaction Status Date / Time No Known Drug Allergies Allergy Verified 11/26/24 18:01 Exam Narrative: Exam Narrative: Physical exam GENERAL: Comfortable, no acute distress. HEAD AND NECK: Atraumatic, normocephalic CARDIOVASCULAR: RRR. Normal S1, S2. No murmurs. RESPIRATORY: Good air entry B/L. +ve wheezes. NEUROLOGY: Alert, awake, oriented X 3. Normal speech. PSYCH: Normal mood, normal affect. Const: Vital Signs, click to edit/add: Vital Signs - 24 hr 11/26/24 13:07 11/26/24 13:25 11/26/24 13:26 Temperature 98.7 F Pulse Rate 106 H 106 H Pulse Rate [Pulse Oximeter] 120 H Respiratory Rate 16 24 163 H Blood Pressure 102/67 Blood Pressure [Ri ght Upper Arm] 92/63 Pulse Oximetry 92 91 91 Oxygen Delivery Me thod Room Air 11/26/24 13:30 11/26/24 13:35 11/26/24 13:36 Temperature Pulse Rate 105 H 104 H 103 H Pulse Rate [Pulse Oximeter] Respiratory Rate 14 19 22 Blood Pressure 95/66 Blood Pressure [Ri ght Upper Arm] Pulse Oximetry 92 90 90 Oxygen Delivery Me thod 11/26/24 17:18 11/26/24 17:20 11/26/24 17:30 Temperature Pulse Rate 96 96 Pulse Rate [Pulse Oximeter] Respiratory Rate 28 H 27 H 26 H Blood Pressure 116/77 Blood Pressure [Ri ght Upper Arm] Pulse Oximetry 92 90 Oxygen Delivery Me thod 11/26/24 17:53 11/26/24 18:00 11/26/24 18:22 Temperature Pulse Rate 105 H 105 H Pulse Rate [Pulse Oximeter] Respiratory Rate 29 H 20 49 H Blood Pressure Blood Pressure [Ri ght Upper Arm] Pulse Oximetry 92 89 Oxygen Delivery Me thod 11/26/24 18:26 11/26/24 18:30 11/26/24 18:41 Temperature Pulse Rate 102 H 100 100 Pulse Rate [Pulse Oximeter] Respiratory Rate 35 H 19 29 H Blood Pressure 93/69 122/80 Blood Pressure [Ri ght Upper Arm] Pulse Oximetry 92 93 91 Oxygen Delivery Me thod 11/26/24 18:45 11/26/24 19:00 11/26/24 19:01 Temperature Pulse Rate 102 H 100 100 Pulse Rate [Pulse Oximeter] Respiratory Rate 24 27 H 25 H Blood Pressure 123/80 Blood Pressure [Ri ght Upper Arm] Pulse Oximetry 91 91 90 Oxygen Delivery Me thod 11/26/24 19:15 11/26/24 19:21 Temperature Pulse Rate 98 Pulse Rate [Pulse Oximeter] Respiratory Rate 25 H Blood Pressure 142/90 H Blood Pressure [Ri ght Upper Arm] Pulse Oximetry 91 Oxygen Delivery [facility] Hospitalist - H&P: Result Labs Labs: Short CBC 11/26/24 Range/Units 15:25 WBC 3.00 L (4.50-11.00) K/uL Hgb 9.9 L (12.0-16.0) gm/dL Hct 31.0 L (33.0-51.0) % Plt Count 51 L (140-440) K/uL BMP 11/26/24 15:25 Sodium 135 Potassium 3.8 Chloride 103 Carbon Dioxide 24 BUN 8 Creatinine 0.5 Glucose 88 Calcium 9.4 Cardiac Enzymes 11/26/24 Range/Units 15:25 Troponin I < 0.01 L (0.01-0.04) ng/mL Imaging CT scan - chest: Radiologist's impression: TECHNIQUE: CT chest PE was acquired with 95 cc Isovue 370 IV contrast. COMPARISON: Significantly material FINDINGS: Heart and vasculature: No cardiomegaly, no pericardial effusion. Limited evaluation secondary to significant motion artifact. No large central pulmonary embolus is identified. However, multiple segmental and subsegmental pulmonary arteries are inadequately evaluated. Lungs and pleura: Irregular peribronchial and septal thickening scattered throughout the lungs, may reflect component of lymphangitic carcinomatosis or scarring. Multiple subcentimeter spiculated pulmonary nodules. Small right pleural effusion. Thyroid and lower neck: Subcentimeter thyroid nodules are noted. Mediastinum/demetri: Mildly enlarged mediastinal and bilateral hilar lymph nodes. Chest wall: Again seen is irregular enhancing right breast mass, which may reflect a primary breast neoplasm. Upper abdomen: Innumerable infiltrative hepatic masses, compatible with metastases, better assessed on prior CT. Bones: Numerous sclerotic lesions within the axial and appendicular skeleton, concerning for osseous metastases. Pathologic fracture of T9 has worsened since prior study. IMPRESSION: 1. Significantly limited study secondary to motion artifact. No large central pulmonary embolus. Multiple segmental and subsegmental pulmonary arteries are inadequately evaluated. 2. Irregular peribronchial and septal thickening scattered throughout the lungs, may reflect component of lymphangitic carcinomatosis versus scarring. Multiple subcentimeter spiculated pulmonary nodules are worrisome for pulmonary metastases. Small right pleural effusion. 3. Probable mediastinal and bilateral hilar lymph node metastases. 4. Again seen is irregular enhancing right breast mass, which may reflect a primary breast neoplasm. 5. Extensive hepatic metastases and osseous metastases. Worsening of the T9 pathologic fracture. Please note that all CT scans at this facility use dose modulation, iterative reconstruction, and/or weight-based dosing when appropriate to reduce radiation dose to as low as reasonably achievable. Dictated by Heather Reece MD @ 11/26/2024 7:17:23 PM Assessment and Plan Assessment and plan (1) Influenza A: Problem comment: -severe fatigue, nonproductive cough and anorexia -Not hypoxic -IV fluid bolus -will start patient on Tamiflu 75 mg b.i.d. Status: Acute (2) Generalized weakness: Problem comment: As above Status: Acute (3) Breast cancer metastasized to multiple sites: Problem comment: -CTA chest showed: No large central pulmonary embolus. 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 Worsening of the T9 pathologic fracture. -on carboplatin and gemcitabine for chemotherapy. -Hx of septic shock in the setting of metastatic breast cancer on chemo in 09/2024 -Pt elected for full code. Status: Acute (4) History of pulmonary embolism: Problem comment: on apixaban Status: Acute (5) Chronic anticoagulation: Problem comment: on apixaban Status: Acute (6) Pancytopenia: Problem comment: -likely secondary to chemotherapy -will monitor labs Status: Acute Total Time Spent Total Time Spent: Time spent: Today I spent 75 minutes seeing the patient, discussing the patient with ER staff, reviewing Expanse and EPIC notes/diagnostics, discussing the care plan with our care time that includes social work, PT/OT, pharmacy, RT, senior living and documenting my impressions and plan in the medical record.
[2024-11-26] MEDS: APIXABAN 5 MG TABLET PO (22:24)
[2024-11-26] MEDS: SODIUM CHLORIDE 0.9 % (FLUSH) 10 ML SYRINGE 5 ML IVF (22:25)
[2024-11-27] VITALS (9 sets, daily range): BP systolic 95–109; BP diastolic 64–76; PULSE 87–103; RESP 16–24; TEMP 36.5–36.8; O2SAT 88–97; BMI 21.9
[2024-11-27 06:25] LABS: Hematocrit 28.2 % (33.0-51.0); Mean Corpuscular HGB Conc 32 gm/dL (32-36); Mean Corpuscular Hemoglobin 34 pg (26-34); Mean Corpuscular Volume 106 fL (80-100); Red Blood Count 2.66 m/uL (4.00-5.20); White Blood Count* 2.78 K/uL (4.50-11.00)
[2024-11-27 06:32] LABS: Platelet Count* 41 K/uL (140-440); Slide Review Reflex No
[2024-11-27 06:40] LABS: Albumin* 2.9 g/dL (3.3-5.0); Chloride* 106 mmol/L (96-114); Potassium* 3.5 mmol/L (3.6-5.1); Sodium* 137 mmol/L (135-149)
[2024-11-27 06:42] LABS: Blood Urea Nitrogen* 5 mg/dL (7-30); Creatinine* 0.4 mg/dL (0.5-1.5); Est. Creatinine Clearance* 43.92; Estimated Glomerular Filt Rate 107 ml/min
[2024-11-27 06:43] LABS: Alanine Aminotransferase* 33 U/L (4-35); Alkaline Phosphatase* 607 U/L (40-150); Anion Gap 7 mEq/L (7-15); Aspartate Amino Transferase* 291 U/L (12-35); Bilirubin Total* 0.7 mg/dL (0.1-1.5); Calcium* 8.8 mg/dL (8.4-10.6); Carbon Dioxide* 24 mmol/L (20-32); Glucose* 79 mg/dL (60-115); Magnesium* 2.1 mg/dL (1.5-2.6); Phosphorus* 1.5 mg/dL (2.5-4.5); Total Protein* 5.5 g/dL (6.0-8.3)
--- NOTE | 2024-11-27 07:17 | PC.NURSE ---
Pt alert and oriented x3 with some forgetfulness. Pt denies pain, chest pain, SOB, and N/V. Pt O2 stats dropped to 87-88% while sleeping, Updated MD Cheung ([facility]), orders place for O2 via nasal cannula to maintain stats of 92% and above. Pt was on 0.5L throughout most of night to maintain 90-92% O2 around around 0500 pt was placed back on room air maintaining stats of 91-94% . Pt is up A1 with wheelchair, voiding, and tolerating a regular diet. ?
[2024-11-27] MEDS: APIXABAN 5 MG TABLET PO ×2 (09:36→20:31)
[2024-11-27] MEDS: SODIUM CHLORIDE 0.9 % (FLUSH) 10 ML SYRINGE 5 ML IVF (09:36)
[2024-11-27] MEDS: OSELTAMIVIR 30 MG CAPSULE PO ×2 (09:36→20:31)
--- NOTE | 2024-11-27 10:51 | PM.IMPN1 ---
Progress Note: A&P Assessment and plan (1) Influenza A: Problem details: - presented with severe fatigue, nonproductive cough and anorexia - + SIRS given hypotension, elevated lactate, 90-91% on RA. High risk status given metastatic breast cancer, on chemotherapy - Tamiflu initiated 11/26/24 - given IVF bolus on admission, will give another bolus and continue IVFs given persistently elevated lactate 11/27 Status: Acute (2) Generalized weakness: Problem details: - therapies ordered Status: Acute (3) Breast cancer metastasized to multiple sites: Problem details: - CTA chest 11/27: No large central pulmonary embolus. 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 Worsening of the T9 pathologic fracture. - on carboplatin and gemcitabine for chemotherapy. - Hx of septic shock in the setting of metastatic breast cancer on chemo in 09/2024 Status: Acute (4) History of pulmonary embolism: Problem details: - on apixaban, continuing during stay Status: Acute (5) Pancytopenia: Problem details: - likely iatrogenic, no acute bleeding - follow CBC Status: Acute Plan - per above - Full Code - Apixaban for ppx - inpatient appropriate given + SIRS in the setting of immunocompromised state + Influenza (elevated lactate, O2 saturation 90-91% on RA, hypotension) - home 1-2 days pending clinical course - partner updated by phone, questions answered Subjective Date Seen: 11/27/24 Interval history: Rosa was admitted to the hospital last night for weakness and elevated lactate in the setting of Influenza A infection. Received IVF bolus in ED, Tamiflu initiated. Receiving supplemental oxygen overnight. This morning, lactate remains elevated. + Pancytopenia and elevated LFTs (baseline/stable/appropriate for known metastatic breast cancer on chemotherapy). Rosa still feels weak, no other concerns for hospitalist team this morning. Therapies ordered. Exam Narrative: Exam Narrative: GEN: Alert and oriented, appears chronically ill HEENT: Poor dentition without evidence of acute tooth infection, EOMIs bilaterally, no scleral icterus CV: RRR, No concerning murmurs R: Bibasilar rhonchi, no wheezing, no rales Ext: Thin extremities Skin: No concerning skin lesions or rashes on exposed skin Neuro: No focal deficits Psych: Appropriate Const: Vital Signs, click to edit/add: Vital Signs - 24 hr 11/26/24 13:07 11/26/24 13:25 11/26/24 13:26 Temperature 98.7 F Pulse Rate 106 H 106 H Pulse Rate [Pulse Oximeter] 120 H Respiratory Rate 16 24 163 H Blood Pressure 102/67 Blood Pressure [Le ft Arm] Blood Pressure [Ri ght Upper Arm] 92/63 Pulse Oximetry 92 91 91 Oxygen Delivery Me thod Room Air Oxygen Flow Rate 11/26/24 13:30 11/26/24 13:35 11/26/24 13:36 Temperature Pulse Rate 105 H 104 H 103 H Pulse Rate [Pulse Oximeter] Respiratory Rate 14 19 22 Blood Pressure 95/66 Blood Pressure [Le ft Arm] Blood Pressure [Ri ght Upper Arm] Pulse Oximetry 92 90 90 Oxygen Delivery Me thod Oxygen Flow Rate 11/26/24 17:18 11/26/24 17:20 11/26/24 17:30 Temperature Pulse Rate 96 96 Pulse Rate [Pulse Oximeter] Respiratory Rate 28 H 27 H 26 H Blood Pressure 116/77 Blood Pressure [Le ft Arm] Blood Pressure [Ri ght Upper Arm] Pulse Oximetry 92 90 Oxygen Delivery Me thod Oxygen Flow Rate 11/26/24 17:53 11/26/24 18:00 11/26/24 18:22 Temperature Pulse Rate 105 H 105 H Pulse Rate [Pulse Oximeter] Respiratory Rate 29 H 20 49 H Blood Pressure Blood Pressure [Le ft Arm] Blood Pressure [Ri ght Upper Arm] Pulse Oximetry 92 89 Oxygen Delivery Me thod Oxygen Flow Rate 11/26/24 18:26 11/26/24 18:30 11/26/24 18:41 Temperature Pulse Rate 102 H 100 100 Pulse Rate [Pulse Oximeter] Respiratory Rate 35 H 19 29 H Blood Pressure 93/69 122/80 Blood Pressure [Le ft Arm] Blood Pressure [Ri ght Upper Arm] Pulse Oximetry 92 93 91 Oxygen Delivery Me thod Oxygen Flow Rate 11/26/24 18:45 11/26/24 19:00 11/26/24 19:01 Temperature Pulse Rate 102 H 100 100 Pulse Rate [Pulse Oximeter] Respiratory Rate 24 27 H 25 H Blood Pressure 123/80 Blood Pressure [Le ft Arm] Blood Pressure [Ri ght Upper Arm] Pulse Oximetry 91 91 90 Oxygen Delivery Me thod Oxygen Flow Rate 11/26/24 19:15 11/26/24 19:21 11/26/24 21:43 Temperature 98.0 F Pulse Rate 98 Pulse Rate [Pulse Oximeter] 100 Respiratory Rate 25 H 20 Blood Pressure 142/90 H Blood Pressure [Le ft Arm] 118/81 Blood Pressure [Ri ght Upper Arm] Pulse Oximetry 91 91 Oxygen Delivery Me thod Room Air Oxygen Flow Rate 11/26/24 21:43 11/26/24 22:29 11/27/24 00:30 Temperature Pulse Rate Pulse Rate [Pulse Oximeter] Respiratory Rate 20 20 Blood Pressure Blood Pressure [Le ft Arm] Blood Pressure [Ri ght Upper Arm] Pulse Oximetry 91 93 Oxygen Delivery Me thod Room Air Nasal Cannula Oxygen Flow Rate 0.5 11/27/24 00:30 11/27/24 00:54 11/27/24 02:18 Temperature 98.3 F 98.3 F Pulse Rate 98 Pulse Rate [Pulse Oximeter] 98 97 Respiratory Rate 20 20 Blood Pressure Blood Pressure [Le ft Arm] 102/64 104/64 Blood Pressure [Ri ght Upper Arm] Pulse Oximetry 95 95 Oxygen Delivery Me thod Nasal Cannula Nasal Cannula Oxygen Flow Rate 0.5 0.5 11/27/24 10:24 11/27/24 10:24 Temperature 98.1 F Pulse Rate Pulse Rate [Pulse Oximeter] 98 Respiratory Rate 20 Blood Pressure Blood Pressure [Le ft Arm] 95/76 Blood Pressure [Ri ght Upper Arm] Pulse Oximetry 90 90 Oxygen Delivery Me thod Room Air Room Air Oxygen Flow Rate Labs Labs: Laboratory Results - last 24 hr 11/26/24 11/26/24 11/27/24 13:15 15:25 06:03 WBC 3.00 L 2.78 L RBC 2.91 L 2.66 L Hgb 9.9 L 9.0 L Hct 31.0 L 28.2 L MCV 107 H 106 H MCH 34 34 MCHC 32 32 RDW Coeff of Christopher 18.2 H Plt Count 51 L 41 L* Neut % (Auto) 71.9 Lymph % (Auto) 13.7 L [place] % (Auto) 12.7 H Eos % (Auto) 0.7 Baso % (Auto) 0.3 Neut # (Auto) 2.20 Lymph # (Auto) 0.40 L [place] # (Auto) 0.40 Eos # (Auto) 0.00 Baso # (Auto) 0.00 Abs Immat Gran (auto) 0.00 Imm/Tot Granulo (auto) 0.7 Diff Slide Review Acceptable Review Sodium 135 137 Potassium 3.8 3.5 L Chloride 103 106 Carbon Dioxide 24 24 Anion Gap 8 7 BUN 8 5 L Creatinine 0.5 0.4 L Estimated Creat Clear 43.92 43.92 Estimated GFR 101 107 Glucose 88 79 Lactate 2.1 H 2.0 H Calcium 9.4 8.8 Phosphorus 1.5 L Magnesium 2.1 Total Bilirubin 0.7 AST 291 H ALT 33 Alkaline Phosphatase 607 H Troponin I < 0.01 L NT-Pro-B Natriuret Pep 372 Total Protein 5.5 L Albumin 2.9 L SARS-CoV-2 (PCR) Negative SARS-CoV-2 Influenza Type A (PCR) POSITIVE PCR FLU A A Influenza Type B (PCR) Negative PCR FLU B RSV (PCR) Negative PCR RSV
[2024-11-27] MEDS: 0.9 % SODIUM CHLORIDE 1000 ml 1,000 ML 125 ML IV ×3 (11:11→23:38)
[2024-11-27] MEDS: 0.9 % SODIUM CHLORIDE 500 ML 500 ML IV (11:11)
[2024-11-27] MEDS: POTASSIUM BICARB 25 MEQ EFFERVESCENT TAB PO ×2 (11:24→11:25)
--- NOTE | 2024-11-27 12:00 | PC.NURSE ---
End of shift note: Patient at baseline (pet patient) pivot transfers form bed to chair and chair to wheelchair to get around. She stated she has been like this since she had food poisoning a few months ago. Patient states she has pain in her low back/buttock area. Does have a pathological fracture in her T9. Patient denied need for medication. Patient got up to chair and stated this helped my pain. Patient was able to void without difficultly. Got washed up at bedside. Lung sounds are diminished. Tried to wean patient from oxygen but still required 1L NC. BP was low and MD was notified. Heart rate was elevated as well. Bolus administered and maintenance fluids started. PIV in right AC is patent. Bowel sounds active. Patient unaware of when last BM was. Skin is intact. Slight redness in buttocks and barrier cream was applied. Patient did eat breakfast but states appetite is low. Telemetry shows sinus tachycardia. Afebrile for this shift. Unsure of discharge plan at this time. Potassium was replaced PO.
[2024-11-27] MEDS: ACETAMINOPHEN 325 MG TABLET 650 MG PO (16:11)
--- NOTE | 2024-11-27 16:52 | REH.OT ---
OT: Order received, attempted to see and patient with other disciplines 2x. Will reschedule eval. Per report, patient is hoping to return home with family support at discharge.
--- NOTE | 2024-11-27 18:45 | PC.NURSE ---
The patient is A&O, VSS on RA, although O2 in low 90's. Reported mild hip pain this afternoon, which the patient states is chronic for her. Poor appetite throughout the day. The patient reports feeling fatigued, dry intermittent cough. IV fluids @ 125. Call light within reach, the patient is still working on dinner. Annalisa ROBERT BSN
--- NOTE | 2024-11-27 23:17 | PC.NURSE ---
19-23: Pt alert, oriented and vitally stable. Pt state LLQ abdominal pain rated 3/10. Pt states pain is related to eating, feels like bloating, pain does not worsen with movement or palpation. Abdomen distended, soft, non-tender. Pt o2 sats remained in the low 90s. Pt in bed, appears to be resting, call light within reach. ?
[2024-11-28] MEDS: ACETAMINOPHEN 325 MG TABLET 650 MG PO (01:25)
[2024-11-28 03:00] VITALS: BP 120/81; PULSE 87; RESP 20; TEMP 36.6; O2SAT 96
--- NOTE | 2024-11-28 06:20 | PC.NURSE ---
End of shift report [id number]: Pleasant and cooperative with cares. Pain to left hip reported, PRN tylenol administered and ice pack applied with minimal relief of discomfort. Patient states she is able to fall asleep with the discomfort and that it is tolerable. Transfers and ambulates with SBA with walker. Denies any chest pain. SOB with exertion, patient reports that SOB improves with rest. Lung sounds with bilateral expiratory wheezing, Dr. Humphrey updated with wheezing and tachypnea. New orders for duonebs and budesonide nebulizers. Intermittent dry cough.
[2024-11-28 06:53] LABS: HCO3 VBG 24 mmol/L (21-28); Lactate* 1.9 mmol/L (0.5-1.9); PCO2 VBG 37 mmHG (40-50); PO2 VBG 65.2 mmHG (25-47); pH VBG 7.412 (7.32-7.43)
[2024-11-28 06:57] LABS: Basophils Percent Auto 0.3 % (0.0-3.0); Eosinophils Percent Auto 0.3 % (0.0-7.0); Hemoglobin* 9.2 gm/dL (12.0-16.0); Immature Granulocytes Pct Auto 2.4 %; Mean Corpuscular HGB Conc 32 gm/dL (32-36); Mean Corpuscular Hemoglobin 34 pg (26-34); Mean Corpuscular Volume 107 fL (80-100); Monocytes Percent Auto 13.4 % (0.0-11.0); Neutrophils Percent Auto 58.6 % (42.0-72.0)
[2024-11-28 07:14] LABS: Albumin* 2.7 g/dL (3.3-5.0); Chloride* 109 mmol/L (96-114); Potassium* 3.9 mmol/L (3.6-5.1); Sodium* 138 mmol/L (135-149)
[2024-11-28 07:16] LABS: Anion Gap 6 mEq/L (7-15); Blood Urea Nitrogen* 4 mg/dL (7-30); Carbon Dioxide* 23 mmol/L (20-32); Creatinine* 0.4 mg/dL (0.5-1.5); Est. Creatinine Clearance* 43.92; Estimated Glomerular Filt Rate 107 ml/min
[2024-11-28 07:17] LABS: Alanine Aminotransferase* 31 U/L (4-35); Alkaline Phosphatase* 640 U/L (40-150); Aspartate Amino Transferase* 287 U/L (12-35); Bilirubin Direct* 0.5 mg/dL (0.0-0.5); Bilirubin Total* 0.8 mg/dL (0.1-1.5); Calcium* 8.3 mg/dL (8.4-10.6); Glucose* 84 mg/dL (60-115); Total Protein* 5.3 g/dL (6.0-8.3)
[2024-11-28 07:41] LABS: Platelet Count* 39 K/uL (140-440)
[2024-11-28 07:42] LABS: Slide Review Reflex Yes
[2024-11-28 07:43] LABS: Slide Review Acceptable Review (Acceptable)
[2024-11-28 09:00] VITALS: BP 102/70; PULSE 95; RESP 18; TEMP 36.9; O2SAT 92
[2024-11-28] MEDS: OSELTAMIVIR 30 MG CAPSULE PO (09:30)
[2024-11-28] MEDS: SODIUM CHLORIDE 0.9 % (FLUSH) 10 ML SYRINGE 5 ML IVF (09:30)
[2024-11-28] MEDS: APIXABAN 5 MG TABLET PO (09:30)
--- NOTE | 2024-11-28 09:45 | P.DS_ITS ---
DS: Providers Provider Date Seen: 11/28/24 Date of admission: 11/27/24 10:52 Primary care physician: Not a Local Provider Admitting Clinician: Luly Humphrey MD Consults: OT, PT Attending Physician on discharge: Thi Flores MD Date of Discharge: 11/28/24 DS: Diagnosis Discharge Diagnosis (1) Influenza A: Status: Acute Problem details: - presented with severe fatigue, nonproductive cough and anorexia - + SIRS given hypotension, elevated lactate, 90-91% on RA. High risk status given metastatic breast cancer, on chemotherapy - Tamiflu initiated 11/26/24 - given IVF bolus and maintenance fluids during stay for elevated lactate, normalized 11/28/24 (2) Generalized weakness: Status: Acute Problem details: - therapies ordered (3) Breast cancer metastasized to multiple sites: Status: Acute Problem details: - CTA chest 11/27: No large central pulmonary embolus. 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 Worsening of the T9 pathologic fracture. - on carboplatin and gemcitabine for chemotherapy. - Hx of septic shock in the setting of metastatic breast cancer on chemo in 09/2024 (4) History of pulmonary embolism: Status: Acute Problem details: - on apixaban, continued during stay (5) Pancytopenia: Status: Acute Problem details: - likely iatrogenic, no acute bleeding - f/u with Oncology DS: Summary Hospital Course Hospital Course: Rosa was admitted to the hospital on 11/26/24 for weakness and elevated lactate in the setting of Influenza A infection. Comorbidities include metastatic breast cancer. Received IVFs for elevated lactate, Tamiflu initiated for Influenza. Required supplemental oxygen in the evenings (per patient, history of nocturnal hypoxia, historically untreated), stable on RA during the day. Known pancytopenia, stable (presumably iatrogenic from chemotherapy, will have outpatient follow with [facility] for this). No evidence of acute bleeding. Seen by therapy teams, no acute needs identified. Medically appropriate for d/c home with partner on 11/28/24. Close [facility] followup recommended, patient aware and will call clinic. Status at Discharge Functional status at discharge: independent ambulation Overall status at discharge: patient is progressing back to baseline Time Spent with Patient Time attestation: Total time spent providing and/or coordinating discharge services: Time spent: Greater than 30 minutes Specific discharge activities: Medication reconciliation, multidisciplinary team discussion Exam Narrative: Exam Narrative: GEN: Alert and oriented, appears chronically ill but nontoxic. Sitting comfortably in bedside chair HEENT: EOMIs bilaterally, no scleral icterus CV: RRR, No concerning murmurs R: LCTA bilaterally without concerning wheezing, air movement adequate Ext: wwp, no concerning edema Skin: No concerning skin lesions or rashes on exposed skin Neuro: Nonfocal Psych: Appropriate Const: Vital Signs, click to edit/add: Vital Signs - 24 hr 11/27/24 10:24 11/27/24 10:24 11/27/24 10:49 Temperature 98.1 F 97.8 F Pulse Rate Pulse Rate [Pulse Oximeter] 98 97 Respiratory Rate 20 20 Blood Pressure [Le ft Arm] 95/76 104/64 Pulse Oximetry 90 90 92 Oxygen Delivery Me thod Room Air Room Air Room Air Oxygen Flow Rate 11/27/24 11:01 11/27/24 15:00 11/27/24 15:00 Temperature 97.8 F Pulse Rate 103 H Pulse Rate [Pulse Oximeter] 93 Respiratory Rate 16 Blood Pressure [Le ft Arm] 109/69 Pulse Oximetry 91 91 Oxygen Delivery Me thod Room Air Room Air Oxygen Flow Rate 11/27/24 19:00 11/27/24 23:00 11/27/24 23:00 Temperature 97.7 F Pulse Rate 87 Pulse Rate [Pulse Oximeter] 90 92 Respiratory Rate 18 24 Blood Pressure [Le ft Arm] 95/64 Pulse Oximetry 97 Oxygen Delivery Ky thod Room Air Oxygen Flow Rate 11/27/24 23:00 11/27/24 23:00 11/28/24 03:00 Temperature 97.9 F 97.9 F Pulse Rate Pulse Rate [Pulse Oximeter] 92 87 Respiratory Rate 24 24 20 Blood Pressure [Le ft Arm] 104/69 120/81 Pulse Oximetry 88 93 96 Oxygen Delivery Me thod Room Air Room Air Room Air Oxygen Flow Rate 1.5 11/28/24 09:00 Temperature 98.4 F Pulse Rate Pulse Rate [Pulse Oximeter] 95 Respiratory Rate 18 Blood Pressure [Le ft Arm] 102/70 Pulse Oximetry 92 Oxygen Delivery Me thod Room Air Oxygen Flow Rate DS: Data Data Completed and Pending Labs on day of discharge: Labs from last 24 hours 11/28/24 11/28/24 11/28/24 06:25 06:25 06:25 WBC RBC Hgb Hct MCV MCH MCHC RDW Coeff of Christopher Plt Count Neut % (Auto) Lymph % (Auto) [place] % (Auto) Eos % (Auto) Baso % (Auto) Neut # (Auto) Lymph # (Auto) [place] # (Auto) Eos # (Auto) Baso # (Auto) Abs Immat Gran (auto) Imm/Tot Granulo (auto) Diff Slide Review VBG pH VBG pCO2 VBG pO2 VBG HCO3 Sodium Potassium Chloride Carbon Dioxide Anion Gap BUN Creatinine Estimated Creat Clear Estimated GFR Glucose Lactate Calcium Magnesium Total Bilirubin Direct Bilirubin AST ALT Alkaline Phosphatase Cancelled Total Protein Cancelled 5.3 L Albumin Cancelled 2.7 L 11/28/24 11/28/24 11/28/24 06:25 06:25 06:25 WBC RBC Hgb Hct MCV MCH MCHC RDW Coeff of Christopher Plt Count Neut % (Auto) Lymph % (Auto) [place] % (Auto) Eos % (Auto) Baso % (Auto) Neut # (Auto) Lymph # (Auto) [place] # (Auto) Eos # (Auto) Baso # (Auto) Abs Immat Gran (auto) Imm/Tot Granulo (auto) Diff Slide Review VBG pH VBG pCO2 VBG pO2 VBG HCO3 Sodium Potassium Chloride Carbon Dioxide Anion Gap BUN Creatinine Estimated Creat Clear Estimated GFR Glucose Lactate Calcium Magnesium Total Bilirubin Direct Bilirubin Cancelled AST Cancelled 287 H ALT Cancelled 31 Alkaline Phosphatase 640 H Total Protein Albumin 11/28/24 11/28/24 06:25 06:25 WBC 3.80 L RBC 2.70 L Hgb 9.2 L Hct 29.0 L MCV 107 H MCH 34 MCHC 32 RDW Coeff of Christopher 19.0 H Plt Count 39 L* Neut % (Auto) 58.6 Lymph % (Auto) 25.0 [place] % (Auto) 13.4 H Eos % (Auto) 0.3 Baso % (Auto) 0.3 Neut # (Auto) 2.20 Lymph # (Auto) 1.00 [place] # (Auto) 0.50 Eos # (Auto) 0.00 Baso # (Auto) 0.00 Abs Immat Gran (auto) 0.10 Imm/Tot Granulo (auto) 2.4 Diff Slide Review Acceptable Review VBG pH 7.412 VBG pCO2 37 L VBG pO2 65.2 H VBG HCO3 24 Sodium 138 Potassium 3.9 Chloride 109 Carbon Dioxide 23 Anion Gap 6 L BUN 4 L Creatinine 0.4 L Estimated Creat Clear 43.92 Estimated GFR 107 Glucose 84 Lactate 1.9 Calcium 8.3 L Magnesium 2.0 Total Bilirubin Cancelled 0.8 Direct Bilirubin 0.5 AST ALT Alkaline Phosphatase Total Protein Albumin Preliminary micro results at discharge 11/26/24 15:25 Blood Culture - Preliminary Blood NO GROWTH AFTER 24 HOURS Discharge Plan Discharge Disposition: Home, Self-Care Date of Admission: 11/27/24 10:52 Attending Provider on Discharge: Thi Flores Primary Care Provider: Provider,Not a Local Condition: Improved Anticipated Discharge Date/Time: 11/28/24 09:35 Discharge Medications: New oseltamivir 30 mg Capsule 30 mg PO BID 3 Days Qty: 6 0RF Rx Instructions: TO COMPLETE FULL 5 DAY COURSE Continued dexamethasone 4 mg tablet 8 mg PO DAILY PRN Rx Instructions: during chemo Eliquis 5 mg tablet 5 mg PO BID olanzapine 5 mg tablet 5 mg PO HS PRN Patient Comments: STARING THE DAY OF CHEMOTHERAPY TAKE 1 TABLET BY MOUTH AT BEDTIME FOR 4 DAYS. MAY TAKE NEEDED FOR NAUSEA/VOMITING AFTER DAY 4. IF NAUSEA/VOMITING ARE PRESENT DURING CYCLE 1 TAKE DOSE THE DAY PRIOR TO CHEMO TREATMENT FOR 4 DAYS Discharge Orders: Discharge Order (Routine); Ordered 11/28/24 Ordered By: Thi Flores Patient Education: Oseltamivir (By mouth), Influenza (DC) Additional Instructions: Continue small frequent meals with lots of protein. Tamiflu sent to [facility] to continue for your Influenza illness. Call your [facility] team today or tomorrow to be seen early next week for followup. Activity Level: No strenuous activity Discharge Diet: Regular and High Protein/High Calorie Follow Up Appointments: Provider,Not a Local [Primary Care Provider] - Forms: [employer] Info Instructions
--- NOTE | 2024-11-28 13:04 | PC.NURSE ---
The patient discharged with her S/O this afternoon. All belongings were accounted for and confirmed. SBA w/ RW, the patient is feeling less fatigued. The patient appears glad to discharge. All follow up, education, and medications were reviewed with the patient. Annalisa ROBERT BSN
== END 2024-11-28 12:05 | disposition home or self-care (01) | DRG 193 ==
LOC: ED 18:19 → MEDSURG 19:47
PROVIDERS: Family Medicine; Admitting Provider Student in an Organized Health Care Education/Training Program; Emergency Provider Emergency Medicine; Visit Provider Student in an Organized Health Care Education/Training Program
DX: J10.1 Influenza due to other identified influenza virus with other respiratory manifestations (principal); D61.810 Antineoplastic chemotherapy induced pancytopenia; D61.818 Other pancytopenia; C78.7 Secondary malignant neoplasm of liver and intrahepatic bile duct; C78.02 Secondary malignant neoplasm of left lung; C78.01 Secondary malignant neoplasm of right lung; C77.1 Secondary and unspecified malignant neoplasm of intrathoracic lymph nodes; C79.51 Secondary malignant neoplasm of bone; T45.1X5A Adverse effect of antineoplastic and immunosuppressive drugs, initial encounter; I95.9 Hypotension, unspecified; C50.911 Malignant neoplasm of unspecified site of right female breast; Z68.21 Body mass index [BMI] 21.0-21.9, adult; Z86.711 Personal history of pulmonary embolism; Z79.01 Long term (current) use of anticoagulants; D64.9 Anemia, unspecified; R00.0 Tachycardia, unspecified; R63.0 Anorexia
CPT/HCPCS: 36415; 71046; 71275; 80048; 80053; 80076; 82803; 83605; 83735; 83880; 84100; 84484; 85025; 85027; 87040; 87631; 93005; 94761; 97110; 97116; 97161; 97165; 97530; 99285; A9270; G0378; J7030; J7120; J7626; Q9967

== ENCOUNTER 2024-12-22 12:12 | Outpatient (CLI) | payer MEDICARE, SELFPAY | END 2024-12-22 12:13 | disposition home or self-care (01) | LOC: AMB 12-23 11:36 | PROVIDERS: Visit Provider Internal Medicine | DX: R53.1 Weakness (principal); R41.82 Altered mental status, unspecified; R10.2 Pelvic and perineal pain | CPT/HCPCS: A0425; A0427 ==